=== PATIENT | female | born 1950 | race Caucasian/White ===

== ENCOUNTER → 2016-08-31 | Outpatient (CLI) | payer OTHER, MEDICARE ==
[~2016-08-31] MED LIST: ACET-1138 PO; AMOX250C3 PO; ASPEC325 PO; BECL0.072 INH; CHOL2000 PO; CYAN1CAP3 PO; DSY/50 PO; ESOM40GR PO; FLUT0.15 INH; FRRG PO; HYDR50TA3 PO; KETO10TA PO; LORA10CA2 PO; MCRK20 PO; MECL1TAB40 PO; MELO15TA4 PO; MELO7.5T5 PO; MOME50SP5; OMEG10002 PO; TRAM-10 PO; ULT50X PO; VLM2 PO
--- NOTE | 2016-08-31 15:56 | DIAGNOSTIC IMAGING REPORT ---
CHEST 2 VIEWS ROUTINE CLINICAL HISTORY: Cough COMPARISON STUDY: 06/05/2015 FINDINGS: The cardiac and mediastinal contours remain stable. Slight prominence the right mid mediastinum is less pronounced than on the prior examination. There is no focal pulmonary consolidation. There is no failure. There are no pleural effusions. There is a minor midthoracic compression deformity unchanged from the prior study.[ IMPRESSION: No active disease in the chest. Electronically signed by: Justice Adams M.D. 08/31/2016 3:54 PM Dictated Date/Time: 08/31/2016 3:53 PM
== END | disposition home or self-care (01) ==
LOC: C.RAD1850 15:39
PROVIDERS: ATTEND Internal Medicine Pulmonary Disease
DX: R05 Cough (principal)

== ENCOUNTER → 2016-09-06 | Outpatient (CLI) | payer OTHER, MEDICARE ==
--- NOTE | 2016-09-06 07:58 | DIAGNOSTIC IMAGING REPORT ---
MRI OF THE RIGHT SHOULDER CLINICAL HISTORY: Right shoulder pain. COMPARISON STUDY: No priors. TECHNIQUE: MRI of the right shoulder was performed utilizing various T1 and T2 weighted sequences in the axial, sagittal, coronal planes. IV contrast was not administered for this examination. Note that interpretation is suboptimal without plain film correlate. FINDINGS: Rotator cuff: There is tendinopathy of the supraspinatous tendon, with a large full-thickness tear at the leading edge. The tear measures at least 8 mm in length and 9 mm in AP diameter. There is no significant musculotendinous retraction. There is tendinopathy with extensive high-grade partial-thickness tearing of the infraspinatus tendon. No full-thickness infraspinatus tendon tear is seen. The teres minor and subscapularis tendons are intact. There is subacromial and subdeltoid bursal fluid. Mild productive change is seen involving the acromioclavicular joint. Biceps tendon: There is mild tendinopathy of the long head of the biceps tendon. The fibers are intact and the tendon is located within the bicipital groove. The anchor is maintained. Labrum: Fraying and mild degenerative tearing is seen in the superior aspect of the labrum. Shoulder joint: There is no joint effusion. The articular cartilage over the glenoid appears well maintained. There is mild degenerative thinning of the articular cartilage of the humeral head. Mild arthritic change is present the greater tuberosity of the humeral head. Musculature and soft tissues: There is mild symmetric atrophy of the shoulder musculature. No intramuscular edema is seen. No atrophy is seen. IMPRESSION: 1. Tendinopathy with a large full-thickness tear of the supraspinatous tendon as above. No significant musculotendinous retraction is identified. 2. Extensive high-grade partial-thickness tearing is seen involving the infraspinatus tendon. No full-thickness tear is identified. 3. There is tendinopathy of the long head of the biceps tendon. 4. There is degenerative fraying/tearing of the superior labrum. Electronically signed by: Subhash Hutchinson M.D. 09/06/2016 7:57 AM Dictated Date/Time: 09/06/2016 7:52 AM
== END | disposition home or self-care (01) ==
LOC: C.MRIBC 06:36
PROVIDERS: ATTEND Orthopaedic Surgery
DX: M75.101 Unspecified rotator cuff tear or rupture of right shoulder, not specified as traumatic (principal); M75.21 Bicipital tendinitis, right shoulder

== ENCOUNTER → 2016-10-22 | Outpatient (CLI) | payer OTHER, MEDICARE ==
--- NOTE | 2016-10-22 11:25 | DIAGNOSTIC IMAGING REPORT ---
PARANASAL SINUSES 4 VIEWS CLINICAL HISTORY: Allergic rhinitis. FINDINGS: 4 views of the paranasal sinuses are obtained. No prior studies are available for comparison at the time of dictation. The skeletal structures appear well mineralized. There is no radiographic evidence of paranasal sinus disease. The mastoid air cells appear well-pneumatized. The bony orbits are intact as visualized. The imaged calvarium appears preserved. IMPRESSION: There is no radiographic evidence of paranasal sinus disease. Electronically signed by: Subhash Hutchinsno M.D. 10/22/2016 11:23 AM Dictated Date/Time: 10/22/2016 11:23 AM
== END | disposition home or self-care (01) ==
LOC: C.RAD1850 11:08
PROVIDERS: ATTEND Internal Medicine Pulmonary Disease
DX: J30.1 Allergic rhinitis due to pollen (principal); J30.81 Allergic rhinitis due to animal (cat) (dog) hair and dander; J30.89 Other allergic rhinitis; R05 Cough

== ENCOUNTER → 2016-10-23 | Outpatient (CLI) | payer OTHER, MEDICARE | END | disposition home or self-care (01) | LOC: C.LABBC 09:45 | PROVIDERS: ATTEND Internal Medicine Pulmonary Disease | DX: R05 Cough (principal) ==

== ENCOUNTER → 2016-10-29 | Outpatient (CLI) | payer OTHER, MEDICARE ==
--- NOTE | 2016-10-29 15:14 | DIAGNOSTIC IMAGING REPORT ---
CT SCAN OF THE PARANASAL SINUSES CLINICAL HISTORY: Nasal turbinate hypertrophy. COMPARISON STUDY: Radiographs of the paranasal sinuses dated 10/22/2016. TECHNIQUE: High-resolution CT scan of the paranasal sinuses is performed. Images are reviewed in the axial, sagittal, and coronal planes. IV contrast was not administered for this examination. The examination is performed using the fusion protocol. CT DOSE: 810.40 mGycm FINDINGS: Maxillary antra: There is mild nodular mucosal thickening present within both maxillary antra. Anterior ethmoid sinuses: There are opacified bilateral ethmoid air cells. Mild mucosal thickening is seen within the anterior ethmoid sinuses. Sphenoid sinuses: Mild nodular mucosal thickening is identified, left greater than right. Frothy secretions are noted on the left. Frontal sinuses: Clear. Ostiomeatal complexes: Narrowing on the right secondary to mucosal thickening. Nearly occluded on the left. Frontoethmoidal and sphenoethmoidal recesses: Patent bilaterally. Carotid arteries: The carotid arteries are covered and without septal attachments. Ethmoid roofs: The ethmoid roofs are symmetric. Nasal turbinates: There is deion bullosa of the inferior nasal turbinates. Nasal septum: There is mild rightward deviation of the bony nasal septum. Optic nerves: Covered. Orbits: The bony orbits are intact. Orbital contents are normal in appearance. Calvarium: The imaged calvarium is normal in appearance Mastoid air cells: There are large right and small left mastoid effusions. Brain parenchyma: Partially visualized brain parenchyma is within normal limits. IMPRESSION: 1. Paranasal sinus disease as above. 2. Mastoid effusions, right larger than left. 3. There is deion bullosa of the inferior nasal turbinates. Electronically signed by: Subhash Hutchinson M.D. 10/29/2016 3:12 PM Dictated Date/Time: 10/29/2016 3:08 PM
== END | disposition home or self-care (01) ==
LOC: C.CTS 13:48
DX: J34.3 Hypertrophy of nasal turbinates (principal); J32.8 Other chronic sinusitis; H74.93 Unspecified disorder of middle ear and mastoid, bilateral

== ENCOUNTER → 2016-11-19 | Day surgery (SDC) | payer OTHER, MEDICARE ==
[2016-11-11 10:47] VITALS: Ht 167.6 cm; Wt 118.2 kg
--- NOTE | 2016-11-12 10:18 | PAT Medication Instructions ---
Service Date Nov 12, 2016. Current Home Medication List Amoxicillin (Amoxil), 4 CAP PO UD Beclomethasone Dipropionate (Qvar), 2 PUFFS INH BID Cholecalciferol (Vitamin D3), 1 CAP PO QAM Cyanocobalamin (B-12), 1 CAP PO QAM Diazepam (Diazepam), 2 TABS PO TID PRN for MOTION SICKNESS Esomeprazole Magnesium (Nexium), 40 MG PO QAM Fluticasone Propionate (Nasal) (Flonase Allergy Relief), 1 SPRAY INH DAILY PRN for PRN Hydrochlorothiazide (Hctz), 1 TAB PO QAM Loratadine (Claritin), 1 CAP PO DAILY PRN for PRN Meclizine HCl (Meclizine HCl), 1 TAB PO UD PRN for VERTIGO Meloxicam (Mobic), 15 MG PO DAILY PRN for Pain [place]-3 Fatty Acids (Fish Oil), 1 CAP PO BID Potassium Chloride (Klor-Con M20), 1 TAB PO BID Trazodone HCl (Trazodone HCl), 1 TAB PO HS Medication Instructions For Your Scheduled Surgery Amoxicillin (Amoxil), 4 CAP PO UD (takes only prior to dental procedures) Meclizine HCl (Meclizine HCl), 1 TAB PO UD PRN for VERTIGO (not taking currently ) Meloxicam (Mobic), 15 MG PO DAILY PRN for Pain (patient stopped 11/06/16) [place]-3 Fatty Acids (Fish Oil), 1 CAP PO BID (patient stopped 11/06/16) - Hold the following medications the morning of surgery: Potassium Chloride (Klor-Con M20), 1 TAB PO BID Loratadine (Claritin), 1 CAP PO DAILY PRN for PRN Hydrochlorothiazide (Hctz), 1 TAB PO QAM Cholecalciferol (Vitamin D3), 1 CAP PO QAM Cyanocobalamin (B-12), 1 CAP PO QAM - Take the following medications the morning of surgery with a sip of water: Fluticasone Propionate (Nasal) (Flonase Allergy Relief), 1 SPRAY INH DAILY PRN for PRN Esomeprazole Magnesium (Nexium), 40 MG PO QAM Diazepam (Diazepam), 2 TABS PO TID PRN for MOTION SICKNESS (if needed) Beclomethasone Dipropionate (Qvar), 2 PUFFS INH BID Albuterol Inhaler (bring with you to hospital on day of surgery) - Take the following medications as scheduled the night before surgery: Trazodone HCl (Trazodone HCl), 1 TAB PO HS Potassium Chloride (Klor-Con M20), 1 TAB PO BID Diazepam (Diazepam), 2 TABS PO TID PRN for MOTION SICKNESS Beclomethasone Dipropionate (Qvar), 2 PUFFS INH BID Albuterol Inhaler If you have any questions please call us at [phone] or [phone] ( Jessica) or [phone]
[2016-11-12 10:48] LABS: BASO % 0.6 %; BASO ABS # 0.04 K/uL (0-0.2); COMPLETE YES; EOS % 4.2 %; HEMATOCRIT 40.2 % (37-47); IG% 0.3 %; LYMPH % 28.9 %; LYMPH ABS # 1.98 K/uL (1.2-3.4); MEAN CELL VOLUME 81.7 fL (80-100); MEAN CORPUSCULAR HEMOGLOBIN 27.8 pg (25-34); MEAN CORPUSCULAR HGB CONC 34.1 g/dl (32-36); MONO % 9.4 %; NEUT % 56.6 %; PLATELET COUNT 273 K/uL (130-400); RED BLOOD COUNT 4.92 M/uL (4.2-5.4); WHITE BLOOD COUNT 6.84 K/uL (4.8-10.8)
[2016-11-12 13:15] LABS: BUN/CREATININE RATIO 33.4 (10-20); CALCIUM 9.6 mg/dl (8.5-10.1); CREATININE 0.7 mg/dl (0.60-1.20)
[~2016-11-19] VITALS: Ht 167.6 cm; Wt 118.2 kg
[~2016-11-19] MED LIST changes: -ACET-1138 PO; +ACETAMINOPHEN 1000 MG/100 ML IV IV ONE; -ASPEC325 PO; +ATROPINE SULFATE 0.1 MG/ML 5ML SYR IV PRN; +CEFAZOLIN 2000 MG/60 ML D5W IV SCH; +DEXAMETHASONE SOD INJ 4 MG/ML VIAL ONE; +EpHEDrine SULFATE INJ 50 MG/ML AMP IV PRN; +EpINEphrine INJ 1MG/ML AMP 1 MG/ML AMP ONE; +FENTANYL CITRATE INJ 50 MCG/1 ML 2 ML VIAL IV PRN; +FENTANYL CITRATE INJ 50 MCG/1 ML 2 ML VIAL ONE; -FRRG PO; +GLYCOPYRROLATE INJ 0.2 MG/ML VIAL ONE; +HYDROCODONE/ACETAMOPHEN 5/325MG TAB PO PRN; +KETAMINE HCL INJ 50 MG/ML 10 ML VIAL ONE; +LACTATED RINGER'S 1000ML 1,000 ML IV SCH; +LIDOCAINE 4% MPF SOAK 5 ML = 1 DOSE TOP ONE; +LIDOCAINE HCL 2% 2 ML VIAL (20MG/ML) ONE; +LIDOCAINE/EPINEPHRINE 1% INJ 50 ML VIAL ONE; -MELO7.5T5 PO; +MIDAZOLAM HCL 1 MG/ML 2ML VIAL ONE; -MOME50SP5; +NEOSTIGMINE METHYLSULFATE 5 MG/5 ML SYR ONE; +ONDANSETRON INJ 2 MG/ML 2 ML VIAL IV PRN; +ONDANSETRON INJ 2 MG/ML 2 ML VIAL ONE; +OXYMETAZOLINE HCL 0.05% NA SPR 15 ML BTL NAE SCH; +OXYMETAZOLINE HCL 0.05% NA SPR 15 ML BTL PRN; +PROPOFOL IV EMULSION 10 MG/ML 20 ML VIAL IV ONE; +SCOPOLAMINE 1.5 MG TDSY TD ONE; -ULT50X PO
--- NOTE | 2016-11-19 07:46 | History & Physical Bridge - [place] ---
H&P Re-Evaluation Bridge Note: I have examined the patient, reviewed the History & Physical and in the interval since the performance of the History & Physical I have noted the following changes of clinical significance: No changes noted
--- NOTE | 2016-11-19 09:27 | [facility] Operative Report ---
Operative Report Operative Date Nov 19, 2016. Pre-Operative Diagnosis Chronic Sinusitis, Nasal Septal Deviation, Hypertrophy Bilateral Inferior Nasal Turbinates Post-Operative Diagnosis Same Procedure(s) Performed Image-Guided Revision Bilateral Endoscopic Sinus Surgery, Revision Septoplasty, Bilateral Inferior Turbinate Outfracture And Turbinoplasty, And Right Nasal Lysis Of Adhesions Surgeon Dr. 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 PUS IN L MAXILLARY SINUS 2. SYNECHIA BETWEEN RIGHT SEPTUM AND RIGHT INFERIOR TURBINATE AND LATERAL NASAL WALL 3. MUCOSAL THICKENING BILATERAL MAXILLARY, BILATERAL ETHMOID, AND LEFT SPHENOID SINUSES Specimens 1. Left Maxillary Contents for Gram Stain and Culture I attest to the content of the Intraoperative Record and any orders documented therein. Any exceptions are noted below.
--- NOTE | 2016-11-19 09:30 | Discharge Instructions ---
Discharge Instructions Date of Service Nov 19, 2016. Admission Reason for Admission: Chronic Sinusitis, Nasal Septal Deviation, Hypertr Discharge Discharge Diagnosis / Problem: SAME Discharge Goals Goal(s): Therapeutic intervention Activity Recommendations Activity Limitations: as noted below 1. NO NOSE BLOWING FOR 2WEEKS 2. LIGHT ACTIVITY FOR 2WEEKS 3. NO DRIVING WHILE ON NARCOTICS . Current Hospital Diet Patient's current hospital diet: Discharge Diet Recommended Diet: Regular Diet Procedures Procedures Performed: Image-Guided Revision Bilateral Endoscopic Sinus Surgery, Revision Septoplasty, Bilateral Inferior Turbinate Outfracture And Turbinoplasty, And Right Nasal Lysis Of Adhesions Pending Studies Studies pending at discharge: no Medical Emergencies . Who to Call and When: Medical Emergencies: If at any time you feel your situation is an emergency, please call 911 immediately. . Non-Emergent Contact Non-Emergency issues call your: Surgeon . . "Provider Documentation" section prepared by Zak Knowles. VTE Core Measure Inpt VTE Proph given/why not?: SCD's
[2016-11-19 10:17] VITALS: TEMP 36.1
--- NOTE | 2016-11-19 10:25 | Anesthesia Progress Nt - [facility] ---
Anesthesia Post Op Note Date & Time Nov 19, 2016 at 10:25 Vital Signs Pain Intensity: 3 Vital Signs Past 12 Hours Date Time Temp Pulse Resp B/P Pulse Ox O2 Delivery O2 Flow Rate FiO2 11/19/16 10:17 36.1 68 16 148/80 97 Room Air 11/19/16 09:57 66 20 96 11/19/16 09:57 66 20 11/19/16 09:55 140/78 11/19/16 09:54 37.0 96 Room Air 11/19/16 09:52 78 18 93 11/19/16 09:52 75 18 11/19/16 09:51 65 17 98 11/19/16 09:51 65 17 11/19/16 09:50 134/79 11/19/16 09:46 67 14 97 11/19/16 09:46 67 14 11/19/16 09:45 132/74 11/19/16 09:43 65 13 11/19/16 09:43 65 13 99 11/19/16 09:40 136/75 11/19/16 09:38 66 12 100 11/19/16 09:38 66 12 11/19/16 09:35 143/82 11/19/16 09:33 77 21 97 11/19/16 09:33 77 21 11/19/16 09:30 144/91 11/19/16 09:28 100 24 11/19/16 09:28 95 24 96 11/19/16 09:26 140/76 11/19/16 09:23 82 22 100 11/19/16 09:23 82 22 11/19/16 09:20 143/76 11/19/16 09:18 91 11/19/16 09:18 36.5 85 18 145/94 98 Mask 7 11/19/16 09:18 91 145/94 95 11/19/16 07:26 36.6 78 16 139/79 97 Room Air Notes Mental Status: alert / awake / arousable, participated in evaluation Pt Amnestic to Procedure: Yes Nausea / Vomiting: adequately controlled Pain: adequately controlled Airway Patency, RR, SpO2: stable & adequate BP & HR: stable & adequate Hydration State: stable & adequate Anesthetic Complications: no major complications apparent
[2016-11-19 10:43] VITALS: BP 118/79; PULSE 68; O2SAT 97
--- NOTE | 2016-11-19 12:41 | OPERATIVE REPORT ---
DATE OF OPERATION: 11/19/2016 PREOPERATIVE DIAGNOSES: 1. Chronic rhinosinusitis. 2. Right septal deviation. 3. Bilateral inferior turbinate hypertrophy. 4. Right nasal synechiae. POSTOPERATIVE DIAGNOSES: 1. Chronic rhinosinusitis. 2. Right septal deviation. 3. Bilateral inferior turbinate hypertrophy. 4. Right nasal synechiae. PROCEDURES: e-[employer] fusion image guided revision, bilateral endoscopic sinus surgery consisting of: 1. Endoscopic right nasal lysis of adhesions. 2. Revision bilateral maxillary antrostomies. 3. Revision bilateral complete ethmoidectomies. 4. Revision left sphenoidotomy. 5. Revision septoplasty. 6. Revision bilateral inferior turbinate outfracture turbinoplasty. SURGEON: Dr. Knowles. ANESTHESIA: General endotracheal. ESTIMATED BLOOD LOSS: 25 mL. FINDINGS: 1. Adhesion between the right side of the nasal septum and the inferior turbinate and lateral nasal wall causing right-sided nasal airway obstruction. 2. Purulence within the left maxillary sinus. 3. Polypoid mucosal thickening involving the bilateral maxillary, ethmoid, and left sphenoid sinuses. SURGEON: Dr. Zak Knowles. SPECIMENS: Left maxillary sinus contents for Gram stain, culture, and sensitivity. COMPLICATIONS: None. INDICATIONS: The patient is a pleasant 66-year-old female who underwent bilateral endoscopic sinus surgery, septoplasty, and inferior turbinate reduction by another optical design engineer in the past who has had recurrent acute and chronic rhinosinusitis refractory to maximal medical therapy including systemic antibiotics and steroids. A posttreatment fusion CT scan showed abnormalities involving the left ostiomeatal complex, bilateral maxillary sinuses, bilateral ethmoid sinuses, and left sphenoid sinus along with right-sided septal deviation and an adhesion between the right inferior turbinate and lateral nasal jimenez connected to the septum. In addition, she had continued bilateral inferior turbinate hypertrophy. She presents for the above-mentioned procedures on an outpatient elective basis. DETAILS OF PROCEDURE: After informed consent had been obtained from the patient, the patient was wheeled to the operating room and placed on the operating table in the supine position. Monitors were placed. After induction of general endotracheal anesthesia, the patient's abdomen was prepped in the usual fashion for endoscopic sinus surgery. The [employer] fusion headset was applied to the forehead and was registered, calibrated and verified and used for the sphenoid portion of the case primarily. Lidocaine and epinephrine pledgets were placed in the bilateral middle meati. The left-sided pledgets were removed. A freer elevator was used to medialize the left middle turbinate. The left middle turbinate and residual uncinate process and lateral nasal wall were injected with 1% lidocaine with 1:100,000 epinephrine. Lidocaine and epinephrine pledget was then placed into the left middle meatus. On the right hand side, there was an adhesion between the septum and the right inferior turbinate and lateral nasal wall which caused complete obstruction of the right nasal airway in the mid septal region. The adhesion was injected with 1% lidocaine with 1:100,000 epinephrine. After allowing adequate time for anesthesia, the adhesion was lysed using a freer elevator and then the freer elevator was used to medialize the right middle turbinate. Once again, the middle turbinate and residual uncinate process and lateral nasal wall were injected with 1% lidocaine with 1:100,000 epinephrine and a pledget was placed into the right middle meatus. The left-sided pledget was then removed. There was a large amount of uncinate process that was residual and this was removed using a Milliken elevator, straight Duke-Cut forceps and powered instrumentation. The left maxillary sinus ostia was completely blocked with scar tissue and polypoid tissue and this was removed using powered instrumentation and backbiting forceps. There was purulence within the left maxillary sinus which was sampled using a Lukens tube and sent off for Gram stain, culture, and sensitivities. The natural ostia of the left maxillary sinus was enlarged anteriorly and inferiorly. It has already been enlarged posteriorly such that further posterior dissection could not be performed. A revision complete ethmoidectomy was then performed using powered instrumentation. Using a transethmoid approach the left sphenoid sinus was also entered and the sphenoid sinus ostia was enlarged medially and inferiorly using powered instrumentation. The right side was then addressed in a similar fashion except that the sphenoid sinus was left undisturbed as this was normal on the CT scan. Also, there was less residual uncinate process on the right hand side. There was no purulence within the right maxillary sinus. Of note, there was polypoid mucosal thickening involving the bilateral ethmoid sinuses. The nasal septum was then injected with 1% lidocaine with 1:100,000 epinephrine. Lidocaine and epinephrine pledgets were placed in the bilateral nasal cavities and pressure applied. After allowing adequate time for vasoconstriction, the pledgets were removed and a #15 scalpel was used to make a left hemitransfixion incision through which the left-sided mucoperichondrial mucoperiosteal flap was elevated. Of note, there was a large amount of quadrangular cartilage already removed from her previous septoplasty. The major obstruction was bony septal spur which was impinging on the airway posteriorly on the right hand side and likely led to her right nasal adhesion. This bony septal spur was removed using an osteotome, mallet, and Miguel forceps. After removal of the septal spur, the septum was found to be midline. The left hemitransfixion incision was closed with several simple interrupted 4-0 chromic sutures. A 4-0 plain gut suture on a Darian needle was then used to perform a quilting stitch of the mucoperichondrial mucoperiosteal flaps bilaterally to help prevent septal hematoma. A Villanueva elevator was then used to infracture and subsequently outfracture the inferior turbinates bilaterally. The inferior turbinates were injected with 1% lidocaine with 1:100,000 epinephrine. A 2.0 mm turbinate blade using powered instrumentation was then used to perform bilateral inferior turbinoplasties in a submucosal fashion. The sinonasal cavities were then suctioned. Merogel was then placed in the bilateral ethmoid sinuses/middle meati. An orogastric tube was placed and the stomach was suctioned free of air and stomach contents. This marked the end of the case. The patient tolerated the procedure well and there were no apparent complications. All the instrumentation was removed from the patient. The patient was extubated and transferred to recovery room in stable condition. I attest to the content of the Intraoperative Record and any orders documented therein. Any exceptio ns are noted below.
== END | disposition home or self-care (01) ==
LOC: X.SURG 07:04
DX: J34.3 Hypertrophy of nasal turbinates (principal); J32.9 Chronic sinusitis, unspecified; J34.2 Deviated nasal septum; J34.89 Other specified disorders of nose and nasal sinuses; K21.9 Gastro-esophageal reflux disease without esophagitis; H69.80 Other specified disorders of Eustachian tube, unspecified ear; E78.5 Hyperlipidemia, unspecified; I10 Essential (primary) hypertension; M17.11 Unilateral primary osteoarthritis, right knee; G25.81 Restless legs syndrome; N39.3 Stress incontinence (female) (male); E53.8 Deficiency of other specified B group vitamins

== ENCOUNTER → 2017-02-04 | Day surgery (SDC) | payer OTHER, MEDICARE ==
[2017-01-12 09:54] VITALS: BMI 43.0
--- NOTE | 2017-01-12 10:43 | PAT Medication Instructions ---
Service Date Jan 12, 2017. Current Home Medication List Amoxicillin (Amoxil), 4 CAP PO UD Beclomethasone Dipropionate (Qvar), 2 PUFFS INH BID PRN for ASTHMA Cholecalciferol (Vitamin D3), 1 CAP PO QAM Cyanocobalamin (B-12), 1 CAP PO QAM Diazepam (Diazepam), 2 TABS PO TID PRN for MOTION SICKNESS Esomeprazole Magnesium (Nexium), 40 MG PO QAM Hydrochlorothiazide (Hctz), 1 TAB PO QAM Loratadine (Claritin), 1 CAP PO DAILY PRN for PRN Meclizine HCl (Meclizine HCl), 1 TAB PO UD PRN for VERTIGO [place]-3 Fatty Acids (Fish Oil), 1 CAP PO BID Potassium Chloride (Klor-Con M20), 1 TAB PO BID Trazodone HCl (Trazodone HCl), 1 TAB PO HS Medication Instructions For Your Scheduled Surgery Meclizine HCl (Meclizine HCl), 1 TAB PO UD PRN for VERTIGO (not taking currently ) - Hold the following medications 2 weeks prior to surgery: [place]-3 Fatty Acids (Fish Oil), 1 CAP PO BID - Hold the following medications the morning of surgery: Amoxicillin (Amoxil), 4 CAP PO UD (will get IV antibiotic AM of surgery) Potassium Chloride (Klor-Con M20), 1 TAB PO BID Loratadine (Claritin), 1 CAP PO DAILY PRN for PRN Hydrochlorothiazide (Hctz), 1 TAB PO QAM Cholecalciferol (Vitamin D3), 1 CAP PO QAM Cyanocobalamin (B-12), 1 CAP PO QAM - Take the following medications the morning of surgery with a sip of water: Diazepam (Diazepam), 2 TABS PO TID PRN for MOTION SICKNESS (if needed) Esomeprazole Magnesium (Nexium), 40 MG PO QAM Beclomethasone Dipropionate (Qvar), 2 PUFFS INH BID PRN for ASTHMA - Take the following medications as scheduled the night before surgery: Trazodone HCl (Trazodone HCl), 1 TAB PO HS Potassium Chloride (Klor-Con M20), 1 TAB PO BID Beclomethasone Dipropionate (Qvar), 2 PUFFS INH BID PRN for ASTHMA If you have any questions please call us at [phone] or [phone] ( Jessica) or [phone]
[2017-01-12 10:56] LABS: BASO % 0.5 %; BASO ABS # 0.04 K/uL (0-0.2); COMPLETE YES; EOS % 4.5 %; HEMATOCRIT 41.6 % (37-47); IG% 0.4 %; LYMPH % 27.2 %; LYMPH ABS # 2.19 K/uL (1.2-3.4); MEAN CELL VOLUME 83.4 fL (80-100); MEAN CORPUSCULAR HEMOGLOBIN 27.5 pg (25-34); MEAN CORPUSCULAR HGB CONC 32.9 g/dl (32-36); MEAN PLATELET VOLUME 9.8 fL (7.4-10.4); NEUT % 56.4 %; PLATELET COUNT 217 K/uL (130-400); RED BLOOD COUNT 4.99 M/uL (4.2-5.4); WHITE BLOOD COUNT 8.06 K/uL (4.8-10.8)
[2017-01-12 11:05] LABS: PARTIAL THROMBOPLASTIN RATIO 1.2; PROTHROMBIN TIME (PATIENT) 10.5 SECONDS (9.0-12.0)
[2017-01-12 13:32] LABS: BUN/CREATININE RATIO 28.3 (10-20); CREATININE 0.8 mg/dl (0.60-1.20)
[2017-01-12 13:41] LABS: CALCIUM 9.5 mg/dl (8.5-10.1)
[~2017-02-04] VITALS: Ht 167.6 cm; Wt 120.2 kg
[~2017-02-04] MED LIST changes: +ACETAMINOPHEN 500 MG TAB PO SCH; +BUPIVACAINE/EPINEPHRINE 0.25% 1:200,000 30 ML VIAL ONE; -CEFAZOLIN 2000 MG/60 ML D5W IV SCH; +CEFAZOLIN 3000 MG/65 ML D5W 65 ML IV SCH; +CHECK SCOPOLAMINE PATCH PLACEMENT SCH; +DiphenhydrAMINE HCL 50 MG/ML VIAL ONE; +EpHEDrine SULFATE 50MG/5ML SYR ONE; +EpINEphrine HCL INJ 1 MG/ML 5ML SYRINGE ONE; -EpINEphrine INJ 1MG/ML AMP 1 MG/ML AMP ONE; +FAMOTIDINE 20 MG TAB PO SCH; -FENTANYL CITRATE INJ 50 MCG/1 ML 2 ML VIAL IV PRN; -FLUT0.15 INH; +GABAPENTIN 300 MG CAP PO SCH; -HYDROCODONE/ACETAMOPHEN 5/325MG TAB PO PRN; +HYDROmorphone INJ 2 MG/ML SYR/VIAL ONE; -KETAMINE HCL INJ 50 MG/ML 10 ML VIAL ONE; +LACTATED RINGER'S 1000ML IV SCH; -LIDOCAINE 4% MPF SOAK 5 ML = 1 DOSE TOP ONE; -LIDOCAINE/EPINEPHRINE 1% INJ 50 ML VIAL ONE; -MELO15TA4 PO; -OXYMETAZOLINE HCL 0.05% NA SPR 15 ML BTL NAE SCH; -OXYMETAZOLINE HCL 0.05% NA SPR 15 ML BTL PRN; +PHENYLEPHRINE 100MCG/ML 5ML SYR ONE; +RANITIDINE HCL 25 MG/ML INJ ONE; +ROCURONIUM BROMIDE 10 MG/ML 5 ML VIAL ONE; +ROPIVACAINE 0.5% 5 MG/ML 30 ML VIAL ONE; -SCOPOLAMINE 1.5 MG TDSY TD ONE; +SCOPOLAMINE 1.5 MG TDSY TD SCH; +SODIUM CHLORIDE 0.9% 1000ML 1,000 ML IV SCH; +TRAMADOL HCL 50 MG TAB PO PRN
--- NOTE | 2017-02-04 06:41 | History and Physical ---
History & Physical Date Feb 04, 2017. Chief Complaint R shoulder rotator cuff tear History of Present Illness The patient is a 66 year old female with complaints of Past Medical/Surgical History Medical Problems: (1) Right Knee DJD Additional History Hepatic Disease: No Endocrine Disorder: No Kidney Disease: No Hypertension: No Heart Disease: No Bleeding Tendencies: No Infectious Diseases: No Allergies Coded Allergies: Latex2 -Systemic Allergic Response (Verified Allergy, Severe, FACIAL EDEMA AND ITCHING/RASH, 01/12/17) Aluminum (Verified Allergy, Unknown, fatigue,KELLOGG,chills,'achiness', 01/12/17) Celecoxib (Verified Allergy, Unknown, "SEVERE GENERAL BODY EDEMA", 01/12/17) Diclofenac (Verified Allergy, Unknown, GI upset/diarrhea, 01/12/17) Diphtheria Toxoid (Verified Allergy, Unknown, fatigue,KELLOGG,chills,'achiness' , 01/12/17) POLLEN (Verified Allergy, Unknown, HAY FEVER, 01/12/17) Pneumococcal Polysaccharides Conjug (Verified Allergy, Unknown, fatigue,KELLOGG ,chills,'achiness', 01/12/17) Sorbitan (Verified Allergy, Unknown, fatigue,KELLOGG,chills,'achiness', 01/12/17) Fentanyl (Verified Adverse Reaction, Unknown, severe nausea and dizziness , 01/12/17) Uncoded Allergies: NARCOTIC PAIN MEDICINE (Adverse Reaction, Severe, SEVERE N/V AND DIZZINESS , 03/27/15) Home Medications Scheduled Amoxicillin (Amoxil), 4 CAP PO UD Cholecalciferol (Vitamin D3), 1 CAP PO QAM Cyanocobalamin (B-12), 1 CAP PO QAM Esomeprazole Magnesium (Nexium), 40 MG PO QAM Hydrochlorothiazide (Hctz), 1 TAB PO QAM [place]-3 Fatty Acids (Fish Oil), 1 CAP PO BID Potassium Chloride (Klor-Con M20), 1 TAB PO BID Trazodone HCl (Trazodone HCl), 1 TAB PO HS Scheduled PRN Beclomethasone Dipropionate (Qvar), 2 PUFFS INH BID PRN for ASTHMA Diazepam (Diazepam), 2 TABS PO TID PRN for MOTION SICKNESS Loratadine (Claritin), 1 CAP PO DAILY PRN for PRN Meclizine HCl (Meclizine HCl), 1 TAB PO UD PRN for VERTIGO Physical Examination Skin: warm/dry, no rash Eyes: normal inspection, EOMI, sclerae normal ENT: normal ENT inspection, pharynx normal Head: normocephalic, atraumatic Neck: supple, no adenopathy, trachea midline Respiratory/Chest: lungs clear, normal breath sounds, no respiratory distress Cardiovascular: regular rate, rhythm, no edema, no murmur Abdomen / GI: normal bowel sounds, non tender Back: normal inspection Extremities: normal inspection, normal range of motion Neurologic/Psych: no motor/sensory deficits, alert, normal reflexes, oriented x 3 Diagnosis Rotator Cuff Tear R shoulder Plan of Treatment R rotator cuff repair
[2017-02-04 06:59] VITALS: BP 155/88; PULSE 74; TEMP 36.5; O2SAT 95; Ht 167.6 cm; Wt 120.2 kg
--- NOTE | 2017-02-04 11:01 | Discharge Instructions ---
Discharge Instructions Date of Service Feb 04, 2017. Admission Reason for Admission: Full Thickness Right Rotator Cuff Tear Discharge Discharge Diagnosis / Problem: SAME ABOVE Discharge Goals Goal(s): Decrease discomfort, Improve function Activity Recommendations Activity Limitations: as noted below Lifting Limitations: until after follow-up appointment Exercise/Sports Limitations: until after follow-up appointment Shower/Bathe: tomorrow . Instructions / Follow-Up Instructions / Follow-Up MEDICATIONS: * Resume previous medications unless instructed otherwise by your surgeon. * Always take pain medication on a full stomach or with food to avoid upset stomach. * Do not drink alcohol or drive while taking narcotics. * Ibuprofen or Tylenol may be taken if narcotic not needed. SPECIAL CARE INSTRUCTIONS: __ None __ Keep extremity elevated and iced x 48 hours; apply ice 20-30 minutes 8-10 times/day. May remove at night. __ Sling __24 hrs/day __ Remove at night _X_ Shoulder Immobilizer (MAY REMOVE AFTER 48 HOURS ONLY TO SHOWER AND FOR THERAPY) _X_ 24 hrs/day __ Remove at night _X_ Dressing __ Maintain until seen in office, may shower with plastic over site _X_ Remove dressings in 24-48 hours and then may shower _X_ Cover incisions with band-aids after showering __ Do not remove steri-strips Call physician if chills or temperature rises above 102 degrees or pain unrelieved by prescribed pain medications at . . Current Hospital Diet Patient's current hospital diet: Discharge Diet Recommended Diet: Regular Diet Fluid Restriction: None Procedures Procedures Performed: Right shoulder arthroscopy medium rotator cuff repair Pending Studies Studies pending at discharge: no Work Instructions Return To Work: after follow-up Lifting Limitations: NO LIFTING WITH RIGHT ARM Medical Emergencies . Who to Call and When: Medical Emergencies: If at any time you feel your situation is an emergency, please call 911 immediately. . Non-Emergent Contact Non-Emergency issues call your: Primary Care Provider Call Non-Emergent contact if: you have a fever, temperature is above 101.5 . "Provider Documentation" section prepared by Neftaly Sahu. . VTE Core Measure Inpt VTE Proph given/why not?: Treatment not indicated
--- NOTE | 2017-02-04 11:54 | Anesthesiology Progress Note ---
Anesthesia Post Op Note Date & Time Feb 04, 2017 at 11:54 Vital Signs Pain Intensity: 0 Vital Signs Past 12 Hours Date Time Temp Pulse Resp B/P (MAP) Pulse Ox O2 Delivery O2 Flow Rate FiO2 02/04/17 11:45 66 16 164/78 94 Nasal Cannula 2 02/04/17 11:35 66 16 150/75 90 Room Air 02/04/17 11:25 66 16 162/83 90 Room Air 02/04/17 11:15 69 16 150/79 97 Oxymask 10 02/04/17 11:05 76 16 154/98 96 Oxymask 10 02/04/17 10:59 36 76 16 155/79 96 Oxymask 10 02/04/17 09:10 67 14 152/80 (104) 98 Diffusion Mask 10 02/04/17 09:00 69 12 141/88 (105) 98 Diffusion Mask 10 02/04/17 08:50 68 12 151/81 (104) 96 Diffusion Mask 10 02/04/17 06:59 36.5 74 20 155/88 (110) 95 Room Air Notes Mental Status: alert / awake / arousable, participated in evaluation Pt Amnestic to Procedure: Yes Nausea / Vomiting: adequately controlled Pain: adequately controlled Airway Patency, RR, SpO2: stable & adequate BP & HR: stable & adequate Hydration State: stable & adequate Anesthetic Complications: no major complications apparent No complaints of pain or nausea. Block working very well. Mild shorty's noted. VSS. Appropriate for transfer out of PACU.
[2017-02-04 12:03] VITALS: BP 155/78; PULSE 95; TEMP 36.5; O2SAT 97
[2017-02-04 12:30] VITALS: BP 164/86; PULSE 96; TEMP 36.7; O2SAT 95
--- NOTE | 2017-02-04 12:53 | [facility] Post Operative Brief Note ---
Immediate Operative Summary Operative Date Feb 04, 2017. Pre-Operative Diagnosis Rotator Cuff Tear R shoulder Post-Operative Diagnosis Rotator Cuff Tear R shoulder Procedure(s) Performed Right shoulder arthroscopy medium rotator cuff repair Surgeon Dr Springer Commercial Representative Surgeon(s) Walker Sahu PA-C Estimated Blood Loss 5 Findings as above Specimens none Complication(s) None Disposition Recovery Room / PACU
[2017-02-04 13:00] VITALS: BP 159/81; PULSE 96; TEMP 36.6; O2SAT 97
--- NOTE | 2017-02-15 19:47 | OPERATIVE REPORT ---
PREOPERATIVE DIAGNOSIS: Medium-sized rotator cuff tear of the right shoulder. POSTOPERATIVE DIAGNOSIS: Medium-sized rotator cuff tear with biceps tendinopathy and small area of grade 4 chondral changes on the humeral head. PROCEDURE: Right shoulder diagnostic arthroscopy with extensive debridement and acromioplasty medium-sized rotator cuff repair and arthroscopic biceps tenodesis. SURGEON: Dr. Mac Springer. CABLE STRETCHER AND TESTER: Walker Sahu PA-C whose health assistant was necessary for positioning the arm and helping with instrumentation. ANESTHESIA: General with a right interscalene nerve block. COMPLICATIONS: None. CONDITION: Stable to PACU. INDICATIONS: Sophei is a pleasant 66-year-old female who presented to our office with complaints of right shoulder pain. MRI and clinical examination were diagnostic for a medium-sized rotator cuff tear. After failing conservative treatment she elected to undergo arthroscopic rotator cuff repair. On February 04, 2017, she arrived at [facility] for the above procedure. She was seen in the preoperative holding area and the operative extremity was identified and signed. She was given a preoperative antiobiotic and a right interscalene nerve block. She was taken back to the operating room and laid on the table in supine position and put under general anesthesia. She was put into the beach chair position. The right shoulder was prepped and draped in sterile fashion. A time out was done and the patient and the operative extremity were properly identified. A scope was introduced in the posterior portal. Diagnostic arthroscopy showed an area of grade 4 chondral changes on the posterior aspect of the humeral head. The humeral head had a little bit of instability in the anterior inferior direction. There was some degenerative tearing of the labrum. The biceps tendon was intact but was very red and inflamed on the dorsal aspect. The subscapularis was intact. There was a tear in the entire supraspinatus. The infraspinatus and teres minor were intact. An anterior portal was made. A shaver was used to do a debridement of the intraarticular structures. The biceps tendon was arthroscopically tenotomized. Chondroplasty was also done of the posterior aspect of the humeral head and the labrum was debrided. The scope was then put into the subacromial space. A lateral port was made. A shaver was used to do a complete subacromial and subdeltoid bursectomy. Significant time was spent debriding these spaces. Cautery was then used to tease the coracoacromial ligament off the undersurface of the acromion and a 5-0 bur was used to clean the acromioplasty of a Bigliani type 3 acromion. A shaver was used to remove any excess debris and attention was directed toward the rotator cuff. An additional anterolateral portal was made and Julia cannulas were placed in each of the lateral portals. The greater tuberosity was prepared with a ring curette and a microfracture. The rotator cuff was then fixed with an Arthrex Speed Bridge configuration using 4.75 mm biocomposite swivel lock suture anchors and fiber tape. This gave a nice knotless Speed Bridge repair. The long head of the biceps tendon was tagged with a fiber link and incorporated into the anterolateral anchor to complete an arthroscopic biceps tenodesis. Multiple pictures were taken. The scope was placed back into the glenohumeral joint and the articular margin of the rotator cuff had been restored. Pictures were taken. Arthroscopic instruments were removed from the shoulder. Portal sites were closed with 3-0 Nylon. She was then placed in a soft dressing and adduction arm sling. She was then extubated and transferred to a [facility] and taken to the post-anesthesia care unit in stable condition. She tolerated the procedure well.
== END | disposition home or self-care (01) ==
LOC: C.ACU 06:31
PROVIDERS: ATTEND Orthopaedic Surgery
DX: S46.011A Strain of muscle(s) and tendon(s) of the rotator cuff of right shoulder, initial encounter (principal); M17.11 Unilateral primary osteoarthritis, right knee; X58.XXXA Exposure to other specified factors, initial encounter

== ENCOUNTER → 2017-05-02 | Outpatient (CLI) | payer OTHER, MEDICARE ==
[~2017-05-02] MED LIST changes: -ACETAMINOPHEN 1000 MG/100 ML IV IV ONE; -ACETAMINOPHEN 500 MG TAB PO SCH; -ATROPINE SULFATE 0.1 MG/ML 5ML SYR IV PRN; -BUPIVACAINE/EPINEPHRINE 0.25% 1:200,000 30 ML VIAL ONE; -CEFAZOLIN 3000 MG/65 ML D5W 65 ML IV SCH; -CHECK SCOPOLAMINE PATCH PLACEMENT SCH; -DEXAMETHASONE SOD INJ 4 MG/ML VIAL ONE; -DiphenhydrAMINE HCL 50 MG/ML VIAL ONE; -EpHEDrine SULFATE 50MG/5ML SYR ONE; -EpHEDrine SULFATE INJ 50 MG/ML AMP IV PRN; -EpINEphrine HCL INJ 1 MG/ML 5ML SYRINGE ONE; -FAMOTIDINE 20 MG TAB PO SCH; -FENTANYL CITRATE INJ 50 MCG/1 ML 2 ML VIAL ONE; -GABAPENTIN 300 MG CAP PO SCH; -GLYCOPYRROLATE INJ 0.2 MG/ML VIAL ONE; -HYDROmorphone INJ 2 MG/ML SYR/VIAL ONE; -LACTATED RINGER'S 1000ML 1,000 ML IV SCH; -LACTATED RINGER'S 1000ML IV SCH; -LIDOCAINE HCL 2% 2 ML VIAL (20MG/ML) ONE; -MIDAZOLAM HCL 1 MG/ML 2ML VIAL ONE; -NEOSTIGMINE METHYLSULFATE 5 MG/5 ML SYR ONE; -ONDANSETRON INJ 2 MG/ML 2 ML VIAL IV PRN; -ONDANSETRON INJ 2 MG/ML 2 ML VIAL ONE; -PHENYLEPHRINE 100MCG/ML 5ML SYR ONE; -PROPOFOL IV EMULSION 10 MG/ML 20 ML VIAL IV ONE; -RANITIDINE HCL 25 MG/ML INJ ONE; -ROCURONIUM BROMIDE 10 MG/ML 5 ML VIAL ONE; -ROPIVACAINE 0.5% 5 MG/ML 30 ML VIAL ONE; -SCOPOLAMINE 1.5 MG TDSY TD SCH; -SODIUM CHLORIDE 0.9% 1000ML 1,000 ML IV SCH; -TRAMADOL HCL 50 MG TAB PO PRN
--- NOTE | 2017-05-09 08:08 | CODING QUERY MEDICAL NECESSITY ---
SUPPORTING DIAGNOSIS NEEDED Dr. Nicholas, A supporting diagnosis is required for the test/procedure performed on this patient in order for us to be reimbursed by the patient's insurance. Please provide a supporting diagnosis for the following test/procedure listed below next to the test name along with your signature. *If there is no additional diagnosis for this patient that would support the following test/procedure please document that below next to the test/procedure. Test(s)/Procedure(s) that require a supporting diagnosis: * ([id number]) DXA BONE DENSITY, AXIAL DIAGNOSIS: DATE OF SERVICE: 05/02/17 Provider Signature: Date: Thank you John Talavera [facility] Information Management Once completed, please kindly fax back to [phone] For questions please call [phone]
== END | disposition home or self-care (01) ==
LOC: C.MAMM 10:48
PROVIDERS: ATTEND Obstetrics & Gynecology
DX: Z13.820 Encounter for screening for osteoporosis (principal)

== ENCOUNTER → 2017-06-15 | Outpatient (CLI) | payer OTHER, MEDICARE ==
[2017-06-15 14:13] LABS: IMMUNOGLOBULN M 86.6 mg/dL (40-230)
== END | disposition home or self-care (01) ==
LOC: C.LAB1850 12:09
PROVIDERS: ATTEND Internal Medicine Pulmonary Disease
DX: J45.901 Unspecified asthma with (acute) exacerbation (principal)

== ENCOUNTER → 2017-08-09 | Outpatient (CLI) | payer OTHER, MEDICARE ==
[~2017-08-09] MED LIST changes: +ACET-1256 PO; +ASPI-435 PO; +ASTN; +ATOR-54 PO; +CETI10TA84 PO; +CYAN10005 PO; +FLVHFA110 INH; +HYDR5SYP11 PO; +IBUP-1050 PO; -KETO10TA PO; +SCOP1.5D2 TD; +SYMIN160 INH; -TRAM-10 PO
[2017-08-09 13:10] LABS: BASO % 0.5 %; BASO ABS # 0.04 K/uL (0-0.2); EOS % 4.4 %; EOS ABS # 0.37 K/uL (0-0.5); HEMATOCRIT 44.2 % (37-47); HEMOGLOBIN 14.7 g/dL (12.0-16.0); IG# 0.02 K/uL (0.00-0.02); LYMPH % 22.3 %; LYMPH ABS # 1.86 K/uL (1.2-3.4); MEAN CELL VOLUME 82.9 fL (80-100); MEAN CORPUSCULAR HEMOGLOBIN 27.6 pg (25-34); MEAN CORPUSCULAR HGB CONC 33.3 g/dl (32-36); MEAN PLATELET VOLUME 11.5 fL (7.4-10.4); MONO % 9.1 %; MONO ABS # 0.76 K/uL (0.11-0.59); NEUT % 63.5 %; PLATELET COUNT 227 K/uL (130-400); RED CELL DISTRIBUTION WIDTH CV 15.6 % (11.5-14.5); RED CELL DISTRIBUTION WIDTH SD 47.1 fL (36.4-46.3); WHITE BLOOD COUNT 8.35 K/uL (4.8-10.8)
[2017-08-09 15:22] LABS: ALKALINE PHOSPHATASE 96 U/L (45-117); ALT/SGPT 37 U/L (12-78); AST/SGOT 23 U/L (15-37); BLOOD UREA NITROGEN 21 mg/dl (7-18); CALCIUM 9.6 mg/dl (8.5-10.1); CARBON DIOXIDE 27 mmol/L (21-32); CHOLESTEROL 252 mg/dl (0-200); GLUCOSE 96 mg/dl (70-99); LDL CHOLESTEROL CALCULATED 155 mg/dl; POTASSIUM 4.2 mmol/L (3.5-5.1); SODIUM 135 mmol/L (136-145)
--- NOTE | 2017-08-17 09:56 | CODING QUERY MEDICAL NECESSITY ---
CQSUPPORTING DIAGNOSIS NEEDED A supporting diagnosis is required for the test/procedure performed on this patient in order for us to be reimbursed by the patient's insurance. Please provide a supporting diagnosis for the following test/procedure listed below next to the test name along with your signature. *If there is no additional diagnosis for this patient that would support the following test/procedure please document that below next to the test/procedure. Test(s)/Procedure(s) that require a supporting diagnosis: DOS 08/09/17 VITAMIN B12 TEST Provider Signature: Date: Thank you Denise Owens Health Information Management Once completed, please kindly fax back to [phone] For questions please call [phone]
== END | disposition home or self-care (01) ==
LOC: C.LABBC 10:18
PROVIDERS: ATTEND Internal Medicine
DX: K21.9 Gastro-esophageal reflux disease without esophagitis (principal); E78.5 Hyperlipidemia, unspecified; I10 Essential (primary) hypertension; R73.09 Other abnormal glucose; E53.8 Deficiency of other specified B group vitamins

== ENCOUNTER → 2017-09-02 | Outpatient (CLI) | payer OTHER, MEDICARE ==
[~2017-09-02] MED LIST changes: -ACET-1256 PO; -ASPI-435 PO; -ASTN; -ATOR-54 PO; -CETI10TA84 PO; -CYAN10005 PO; -FLVHFA110 INH; -HYDR5SYP11 PO; -IBUP-1050 PO; -SCOP1.5D2 TD; -SYMIN160 INH
--- NOTE | 2017-09-02 13:25 | MAMMOGRAPHY REPORT ---
BILATERAL DIGITAL SCREENING MAMMOGRAM TOMOSYNTHESIS WITH CAD: 09/02/2017 CLINICAL HISTORY: Routine screening. TECHNIQUE: Breast tomosynthesis in addition to standard 2D mammography was performed. Current study was also evaluated with a Computer Aided Detection (CAD) system. COMPARISON: Comparison is made to exams dated: 04/29/2016 mammogram, 04/15/2015 mammogram - [facility], 11/20/2013 mammogram, and 11/13/2012 mammogram. BREAST COMPOSITION: There are scattered areas of fibroglandular density in both breasts. FINDINGS: No suspicious masses, calcifications, or areas of architectural distortion are noted in ei ther breast. There has been no significant interval change compared to prior exams. IMPRESSION: ACR BI-RADS CATEGORY 1: NEGATIVE There is no mammographic evidence of malignancy. A 1 year screening mammogram is recommended. The pa tient will receive written notification of the results. Approximately 10% of breast cancers are not detected with mammography. A negative mammographic report should not delay biopsy if a clinically suggestive mass is present. Kisha Suarez M.D. ah/:09/02/2017 12:41:56 Senior Product Designer: Naresh VICTOR(R)(M), [facility] letter sent: Normal 1/2 BI-RADS Code: ACR BI-RADS Category 1: Negative
== END | disposition home or self-care (01) ==
LOC: C.MAMM 11:51
PROVIDERS: ATTEND Obstetrics & Gynecology
DX: Z12.31 Encounter for screening mammogram for malignant neoplasm of breast (principal)

== ENCOUNTER → 2017-11-28 | Outpatient (CLI) | payer OTHER, MEDICARE ==
[2017-11-28 12:40] LABS: ALBUMIN 3.8 gm/dl (3.4-5.0); ALT/SGPT 34 U/L (12-78); AST/SGOT 20 U/L (15-37); BLOOD UREA NITROGEN 27 mg/dl (7-18); CALCIUM 9.2 mg/dl (8.5-10.1); CARBON DIOXIDE 28 mmol/L (21-32); CREATININE 0.67 mg/dl (0.60-1.20); GLUCOSE 93 mg/dl (70-99); POTASSIUM 4.1 mmol/L (3.5-5.1); SODIUM 139 mmol/L (136-145)
[2017-11-28 12:41] LABS: ALKALINE PHOSPHATASE 99 U/L (45-117); CHOLESTEROL 159 mg/dl (0-200); LDL CHOLESTEROL CALCULATED 86 mg/dl; TOTAL PROTEIN 7.3 gm/dl (6.4-8.2)
== END | disposition home or self-care (01) ==
LOC: C.LAB1850 10:39
PROVIDERS: ATTEND Internal Medicine
DX: E78.5 Hyperlipidemia, unspecified (principal)

== ENCOUNTER → 2017-12-09 | Outpatient (CLI) | payer OTHER, MEDICARE ==
--- NOTE | 2017-12-09 09:25 | DIAGNOSTIC IMAGING REPORT ---
MRI OF THE LUMBAR SPINE WITHOUT IV CONTRAST CLINICAL HISTORY: Right lower extremity radiculopathy. COMPARISON STUDY: No priors. TECHNIQUE: MRI of the lumbar spine is performed utilizing various T1 and T2-weighted sequences in the axial and sagittal planes. IV contrast was not administered for this examination. FINDINGS: Lumbar spine: Vertebral body height is maintained throughout the lumbar spine. There is a minimal chronic appearing superior endplate compression deformity of T11. There is 6 mm of anterolisthesis at L4-L5. Minimal retrolisthesis is seen at L1-L2 and L2-L3. There is straightening of the lumbar lordosis. Anterior osteophytes are seen throughout. The transverse and spinous processes are intact as visualized. There is no evidence of spondylolysis. No destructive bony lesion is seen. Small hemangiomas are noted in the bodies of L2 and L4. There is chronic degenerative endplate change with mild endplate edema seen at L5-S1. Chronic endplate change is also seen at L1-L2 and L2-L3. Intervertebral discs: Degenerative disc desiccation is seen throughout the lumbar spine. There is moderate to advanced loss of height at T12-L1, L1-L2, L4-L5, and L5-S1. Spinal cord: The visualized spinal cord is normal in morphology and signal intensity. The conus medullaris terminates at the level of L1. The nerve roots of the cauda equina are normal in morphology. T11-T12: There is a disc herniation with annular fissure eccentric to the right. This abuts the ventral right aspect of the cord. The neural foramina appear patent. T12-L1: There is a posterior disc bulge with annular fissure eccentric to the left. This effaces the ventral subarachnoid space. The neural foramina are widely patent. L1-L2: There is a disc bulge eccentric to the left with annular fissure. The neural foramina are patent. L2-L3: Minimal disc bulge is noted with annular fissure. The central canal and neural foramina are patent. L3-L4: There is minimal posterior disc bulge. There is no significant acquired compromise of the central canal. The disc bulge likely abuts the transiting bilateral L4 nerve roots. L4-L5: There is posterior disc bulge with annular fissure. In conjunction with anterolisthesis and hypertrophy of the ligamentum flavum there is moderate central canal stenosis at this level with a minimum AP diameter of 6 mm. There is bilateral subarticular stenosis. There is probable impingement on the exiting bilateral L4 and the transiting bilateral L5 nerve roots. Bulky facet arthropathy causes moderate bilateral neural foraminal stenosis. L5-S1: There is a small disc herniation. There is no significant acquired compromise of the central canal. There is bilateral subarticular stenosis. Facet arthropathy causes mild left neural foraminal stenosis. Sacrum: The visualized sacrum is normal in morphology and signal intensity. Soft tissues: There is fatty atrophy of the paraspinous musculature. A small cyst is noted in the upper pole of the left kidney. No retroperitoneal adenopathy is seen. IMPRESSION: 1. There is a disc herniation eccentric to the right at T11-T12 which abuts the ventral cord. 2. There is a disc herniation at L5-S1. 3. Multilevel lumbosacral spondylosis at additional levels as above with moderate central canal stenosis at L4-L5. See discussion for detailed level by level analysis. 4. Degenerative disc disease and endplate change as above. 5. No destructive bony process is identified. Dictated: 12/09/2017 7:57 AM Transcribed: 12/09/2017 9:25 AM [facility] Electronically signed by: Subhash Hutchinson M.D. 12/09/2017 9:46 AM Dictated Date/Time: 12/09/2017 7:57 AM
== END | disposition home or self-care (01) ==
LOC: C.MRIBC 07:08
PROVIDERS: ATTEND Internal Medicine
DX: M54.16 Radiculopathy, lumbar region (principal)

== ENCOUNTER 2018-11-24 07:46 | Inpatient (IN) ==
--- NOTE | 2018-10-31 13:00 | Anesthesiology Consultation ---
Date of Service October 31, 2018 Assessment & Plan (1) Encounter for pre-operative examination: *H/O DIFFICULT INTUBATION* *GLIDESCOPE #3 2017 SHOULDER SCOPE* Chart Review Chart Review: Acceptable Risk for Surgery and Patient seen in Pre Admission Testing Teaching & Discussion Instructed NPO after midnight before surgery, except medications with 15 cc of water. Medication instructions provided according to the PAT guidelines. History Surgery Operation Date: 11/24/18 11:30 Proposed Procedures p Left Reverse Total Shoulder Arthroplasty - Mac Springer, Height/Weight Height: 5 ft 6 in Weight: 110.2 kg Allergies Allergy/AdvReac Type Severity Reaction Status Date / Time aluminum Allergy Unknown fatigue,KELLOGG, Verified 10/25/18 14:15 chills,'ach iness' capsaicin Allergy Unknown GI Verified 10/25/18 14:15 upset/diarrhea celecoxib Allergy Unknown "SEVERE Verified 10/25/18 14:15 GENERAL BODY EDEMA" diclofenac Allergy Unknown GI Verified 10/25/18 14:15 upset/diarrhea Diclopak Allergy Unknown GI Verified 04/07/18 08:23 upset/diarrhea diphtheria toxoid,fluid Allergy Unknown fatigue,KELLOGG, Verified 10/25/18 14:15 chills,'ach iness' pneumococcal vaccine Allergy Unknown fatigue,KELLOGG, Verified 10/25/18 14:15 chills,'ach iness' pollen extracts Allergy Unknown HAY FEVER Verified 10/25/18 14:15 sorbitan esters Allergy Unknown fatigue,KELLOGG, Verified 10/25/18 14:15 chills,'ach iness' fentanyl AdvReac Unknown severe Verified 10/25/18 14:15 nausea and dizziness Latex2 -Systemic Allergic Allergy Severe FACIAL Uncoded 06/16/18 11:21 Response EDEMA AND ITCHING/RASH NARCOTIC PAIN MEDICINE AdvReac Severe SEVERE N/V Uncoded 06/16/18 11:21 AND DIZZINESS Medications Home Medications Medication Instructions Recorded Confirmed Last Taken acetaminophen 500 mg tablet 500 mg PO Q8H PRN tab 06/15/18 10/25/18 Unknown aspirin 81 mg tablet,delayed 81 mg PO QAM 06/15/18 10/25/18 Unknown release budesonide-formoterol HFA 160 2 puffs INH BID 06/15/18 10/25/18 Unknown mcg-4.5 mcg/actuation aerosol inhaler cetirizine 10 mg tablet 10 mg PO QAM PRN tab 06/15/18 10/25/18 Unknown cholecalciferol (vitamin D3) 2,000 2,000 units PO QAM 06/15/18 10/25/18 Unknown unit capsule cyanocobalamin (vitamin B-12) 1,000 mcg PO QAM 06/15/18 10/25/18 Unknown 1,000 mcg capsule esomeprazole magnesium 40 mg 40 mg PO QAM 06/15/18 10/25/18 Unknown capsule,delayed release hydrochlorothiazide 50 mg tablet 50 mg PO QAM 06/15/18 10/25/18 Unknown ibuprofen 200 mg tablet 200 mg PO QID PRN 06/15/18 10/25/18 Unknown loratadine 10 mg tablet 10 mg PO DAILY PRN 06/15/18 10/25/18 Unknown meclizine 12.5 mg tablet 12.5 mg PO TID PRN 06/15/18 10/25/18 Unknown omega-3 fatty acids 1,000 mg 1,000 mg PO BID cap 06/15/18 10/25/18 Unknown capsule potassium chloride ER 20 mEq 20 meq PO BID 06/15/18 10/25/18 Unknown tablet,extended release(part/cryst) scopolamine 1 mg over 3 days 1 patch TD Q3D PRN 06/15/18 10/25/18 Unknown transdermal patch trazodone 50 mg tablet 50 mg PO HS tab 06/15/18 10/25/18 Unknown fluticasone propionate [Flonase 1 spray INTRANASAL DAILY PRN 10/25/18 10/25/18 Unknown Allergy Relief] albuterol sulfate [ProAir HFA] 1 puff INHALATION Q6H PRN 10/31/18 10/31/18 Unknown rosuvastatin [Crestor] 5 mg PO 3XWK 10/31/18 10/31/18 Unknown Past Medical History Medical History Trochanteric bursitis (Chronic) Sacroiliac inflammation (Chronic) Lumbar spinal stenosis (Chronic) moderate L4-5 Lumbar disc herniation (Chronic) L5-S1 Seasonal allergies (Chronic) Meniere disease (Chronic) REASON FOR HCTZ HLD (hyperlipidemia) (Chronic) GERD (gastroesophageal reflux disease) (Chronic) Asthma (Chronic) Symbicort daily, has not used albuterol rescue in > 1 yr Nausea and vomiting after administration of anesthetic agent Past Surgical History Surgical History Hx of tonsillectomy (Resolved) S/P foot surgery, left (Resolved) multiple H/O sinus surgery (Resolved) multiple History of total left knee replacement (Resolved) History of total right knee replacement (Resolved) Hx of repair of right rotator cuff (Resolved) Hx of cholecystectomy (Resolved) Hx of hysterectomy (Resolved) History of eye surgery MUSCLE REPAIR OF LEFT EYE CHILD = Past Anesthesia History Difficult Airway (h/o Glidescope) and Other Strong personal and FHX of PONV 2016 RCR: Easy Glidescope #3, ETT 7.0 History of PONV Yes (multiple episodes) Motion Sickness Screening History of Motion Sickness: Yes Social History Smoking Status: Never smoker Do You Dip or Chew Tobacco: No Hx Alcohol Use: No Alcohol Intake Frequency Comment: 0 Hx Substance Use: No substance use type: does not use Exercise / Class Metabolic Activity II 4-5 Yardwork/Stairs/Walk up hill (Denies CP or SOB with stairs) Review of Systems Pt denies any recent chest pain, shortness of breath, palpitations, cough, fever or URI. Physical Exam Vital Signs BP: 103/68 P: 75bpm SPO2: 97% RA T: 98.2 F R: 14 ENMT Mouth: + dental restorations (multiple caps, permanent wire behind front teeth); no chipped teeth and no loose teeth Thyromental Distance: > or= 3.5 Finger Breadths (3.5) Mallampati Class: III Neck normal visual inspection; neck extension not limited Respiratory normal respiratory effort Auscultation: lungs clear to auscultation bilaterally Cardiovascular Rate/Rhythm: regular rate and regular rhythm Heart Sounds: no murmur Vessels: no carotid bruit Extremities: no edema Testing Electrocardiogram Date: 10/31/18 Findings: + NSR @ (71) Chest X-Ray Date: 10/31/18 Findings: + NAD Laboratory Results 10/31/18 13:03 10/31/18 13:03 Blood Type O Positive 10/31/18 13:03 Antibody Screen NEGATIVE 10/31/18 13:03 PT 10.1 Seconds (9.0-12.0) 10/31/18 13:03 INR 1.0 (0.9-1.1) 10/31/18 13:03 APTT 26.0 Seconds (21.0-31.0) 10/31/18 13:03
--- NOTE | 2018-10-31 13:02 | PAT Medication Instructions ---
Medication Instructions Date of Service October 31, 2018 Home Medications acetaminophen 500 mg tablet 500 mg PO Q8H PRN aspirin 81 mg tablet 81 mg PO QAM budesonide-formoterol HFA 160mcg 2 puffs INH BID cetirizine 10 mg tablet 10 mg PO QAM PRN cholecalciferol (vitamin D3) 2,000 2,000 units PO QAM rosuvastatin [Crestor] 5 mg PO 3XWK cyanocobalamin (vitamin B-12) 1,000 mcg PO QAM esomeprazole magnesium 40 mg 40 mg PO QAM fluticasone propionate 110 2 puffs INH BID hydrochlorothiazide 50 mg tablet 50 mg PO QAM ibuprofen 200 mg tablet 200 mg PO QID PRN loratadine 10 mg tablet 10 mg PO DAILY PRN meclizine 12.5 mg tablet 12.5 mg PO TID PRN omega-3 fatty acids 1,000 mg 1,000 mg PO BID potassium chloride ER 20 mEq 20 meq PO BID scopolamine 1 mg over 3 days 1 patch TD Q3D PRN trazodone 50 mg tablet 50 mg PO HS fluticasone propionate [Flonase Allergy Relief] 1 spray INTRANASAL DAILY PRN ProAir Inhaler 1 puff prn SOB ASK your surgeon for instructions ibuprofen 200 mg tablet 200 mg PO QID PRN STOP taking 2 weeks before surgery omega-3 fatty acids 1,000 mg 1,000 mg PO BID DO NOT take the morning of surgery cetirizine 10 mg tablet 10 mg PO QAM PRN cholecalciferol (vitamin D3) 2,000 2,000 units PO QAM cyanocobalamin (vitamin B-12) 1,000 mcg PO QAM hydrochlorothiazide 50 mg tablet 50 mg PO QAM loratadine 10 mg tablet 10 mg PO DAILY PRN potassium chloride ER 20 mEq 20 meq PO BID fluticasone propionate [Flonase Allergy Relief] 1 spray INTRANASAL DAILY PRN Take morning of surgery With a small sip of water, OTHERWISE NOTHING TO EAT OR DRINK AFTER MIDNIGHT: acetaminophen 500 mg tablet 500 mg PO Q8H PRN (if needed) aspirin 81 mg tablet 81 mg PO QAM rosuvastatin [Crestor] 5 mg PO 3XWK budesonide-formoterol HFA 160mcg 2 puffs INH BID esomeprazole magnesium 40 mg 40 mg PO QAM meclizine 12.5 mg tablet 12.5 mg PO TID PRN (if needed) scopolamine 1 mg over 3 days 1 patch TD Q3D PRN (if needed) fluticasone propionate [Flonase Allergy Relief] 1 spray INTRANASAL DAILY PRN (if needed) ProAir Inhaler 1 puff prn SOB (if needed, and bring with you to the hospital) Take evening before surgery acetaminophen 500 mg tablet 500 mg PO Q8H PRN (if needed) budesonide-formoterol HFA 160mcg 2 puffs INH BID cetirizine 10 mg tablet 10 mg PO QAM PRN (if needed) loratadine 10 mg tablet 10 mg PO DAILY PRN (if needed) meclizine 12.5 mg tablet 12.5 mg PO TID PRN (if needed) potassium chloride ER 20 mEq 20 meq PO BID scopolamine 1 mg over 3 days 1 patch TD Q3D PRN (if needed) trazodone 50 mg tablet 50 mg PO HS fluticasone propionate [Flonase Allergy Relief] 1 spray INTRANASAL DAILY PRN (if needed) ProAir Inhaler 1 puff prn SOB (if needed) Other Notes If you have any questions please call us at [phone] or [phone] or [phone] or [phone]
--- NOTE | 2018-10-31 13:56 | XRay Report ---
XR chest Pre-admission PA/Lat CLINICAL HISTORY: Preoperative chest COMPARISON STUDY: 06/13/2017 FINDINGS: The heart remains borderline enlarged. There is no failure. There is no acute parenchymal c onsolidation. There is minor basilar atelectasis/scarring.[ IMPRESSION: No active disease in the chest. Electronically signed by: Justice Adams M.D. 10/31/2018 1:55 PM
[2018-10-31 14:11] LABS: Basophils # (auto) 0.05 K/uL (0-0.2); Basophils % (auto) 0.5 %; Eosinophils # (auto) 0.28 K/uL (0-0.5); Hematocrit (blood only) 39.5 % (37-47); Hemoglobin 13.1 g/dL (12.0-16.0); Immature Granulocytes # (auto) 0.02 K/uL (0.00-0.02); Immature Granulocytes % (auto) 0.2 %; Lymphocytes # (auto) 2.46 K/uL (1.2-3.4); Lymphocytes % (auto) 26.6 %; Mean Corpuscular Hgb Conc 33.2 g/dL (32-36); Mean Corpuscular Volume 85.3 fL (80-100); Mean Platelet Volume 11.3 fL (7.4-10.4); Monocytes # (auto) 0.97 K/uL (0.11-0.59); Monocytes % (auto) 10.5 %; Neutrophils # (auto) 5.47 K/uL (1.4-6.5); Neutrophils % (auto) 59.2 %; Platelet Count 254 K/uL (130-400); RDW Coefficient of Variation 15.1 % (11.5-14.5); RDW Standard Deviation 46.7 fL (36.4-46.3); Red Blood Count 4.63 M/uL (4.2-5.4); White Blood Count 9.25 K/uL (4.8-10.8)
[2018-10-31 14:39] LABS: BUN Creatinine Ratio 36.4 (10-20); Calcium 8.7 mg/dl (8.5-10.1); Creatinine Clr Calc Pharmacy 98.1 ml/min; Est GFR (African American) 103.7; Est GFR (Non-African American) 89.4; Potassium 3.7 mmol/L (3.5-5.1)
[2018-10-31 15:21] LABS: Prothrombin Time 10.1 Seconds (9.0-12.0)
--- NOTE | 2018-11-23 20:28 | History & Physical Report ---
Date of Service November 23, 2018 Assessment & Plan (1) Rotator cuff arthropathy of left shoulder: We will proceed with a left reverse total shoulder arthroplasty. Postoperatively she will be placed in a sling and kept overnight in the hospital for postop medical management. She plans to use energy physical therapy upon discharge. Present on Admission?: Yes History of Present Illness Chief Complaint: Rotator cuff arthropathy of the left shoulder Primary Care Provider: Leandro Vallejo MD Sophie is a pleasant 68-year-old female who slipped and fell on [employer]. She landed directly onto her shoulder. She had significant pain and weakness since. MRI and clinical examination were diagnostic for chronic retracted rotator cuff tear of the left shoulder. There is also some osteoarthritis. After failing conservative treatment, she like to proceed with a reverse left shoulder arthroplasty. Allergies Allergy/AdvReac Type Severity Reaction Status Date / Time aluminum Allergy Unknown fatigue,KELLOGG, Verified 10/25/18 14:15 chills,'ach iness' capsaicin Allergy Unknown GI Verified 10/25/18 14:15 upset/diarrhea celecoxib Allergy Unknown "SEVERE Verified 10/25/18 14:15 GENERAL BODY EDEMA" diclofenac Allergy Unknown GI Verified 10/25/18 14:15 upset/diarrhea Diclopak Allergy Unknown GI Verified 04/07/18 08:23 upset/diarrhea diphtheria toxoid,fluid Allergy Unknown fatigue,KELLOGG, Verified 10/25/18 14:15 chills,'ach iness' pneumococcal vaccine Allergy Unknown fatigue,KELLOGG, Verified 10/25/18 14:15 chills,'ach iness' pollen extracts Allergy Unknown HAY FEVER Verified 10/25/18 14:15 sorbitan esters Allergy Unknown fatigue,KELLOGG, Verified 10/25/18 14:15 chills,'ach iness' fentanyl AdvReac Unknown severe Verified 10/25/18 14:15 nausea and dizziness Latex2 -Systemic Allergic Allergy Severe FACIAL Uncoded 06/16/18 11:21 Response EDEMA AND ITCHING/RASH NARCOTIC PAIN MEDICINE AdvReac Severe SEVERE N/V Uncoded 06/16/18 11:21 AND DIZZINESS Home Medications Home Medications Medication Instructions Recorded Confirmed Type acetaminophen 500 mg tablet 500 mg PO Q8H PRN tab 06/15/18 10/25/18 History aspirin 81 mg tablet,delayed 81 mg PO QAM 06/15/18 10/25/18 History release budesonide-formoterol HFA 160 2 puffs INH BID 06/15/18 10/25/18 History mcg-4.5 mcg/actuation aerosol inhaler cetirizine 10 mg tablet 10 mg PO QAM PRN tab 06/15/18 10/25/18 History cholecalciferol (vitamin D3) 2,000 2,000 units PO QAM 06/15/18 10/25/18 History unit capsule cyanocobalamin (vitamin B-12) 1,000 mcg PO QAM 06/15/18 10/25/18 History 1,000 mcg capsule esomeprazole magnesium 40 mg 40 mg PO QAM 06/15/18 10/25/18 History capsule,delayed release hydrochlorothiazide 50 mg tablet 50 mg PO QAM 06/15/18 10/25/18 History ibuprofen 200 mg tablet 200 mg PO QID PRN 06/15/18 10/25/18 History loratadine 10 mg tablet 10 mg PO DAILY PRN 06/15/18 10/25/18 History meclizine 12.5 mg tablet 12.5 mg PO TID PRN 06/15/18 10/25/18 History omega-3 fatty acids 1,000 mg 1,000 mg PO BID cap 06/15/18 10/25/18 History capsule potassium chloride ER 20 mEq 20 meq PO BID 06/15/18 10/25/18 History tablet,extended release(part/cryst) scopolamine 1 mg over 3 days 1 patch TD Q3D PRN 06/15/18 10/25/18 History transdermal patch trazodone 50 mg tablet 50 mg PO HS tab 06/15/18 10/25/18 History fluticasone propionate [Flonase 1 spray INTRANASAL DAILY PRN 10/25/18 10/25/18 History Allergy Relief] albuterol sulfate [ProAir HFA] 1 puff INHALATION Q6H PRN 10/31/18 10/31/18 History rosuvastatin [Crestor] 5 mg PO 3XWK 10/31/18 10/31/18 History Past Med/Surg History Medical History Trochanteric bursitis (Chronic) Sacroiliac inflammation (Chronic) Lumbar spinal stenosis (Chronic) moderate L4-5 Lumbar disc herniation (Chronic) L5-S1 Seasonal allergies (Chronic) Meniere disease (Chronic) REASON FOR HCTZ HLD (hyperlipidemia) (Chronic) GERD (gastroesophageal reflux disease) (Chronic) Asthma (Chronic) Symbicort daily, has not used albuterol rescue in > 1 yr Surgical History Hx of tonsillectomy (Resolved) S/P foot surgery, left (Resolved) multiple H/O sinus surgery (Resolved) multiple History of total left knee replacement (Resolved) History of total right knee replacement (Resolved) Hx of repair of right rotator cuff (Resolved) Hx of cholecystectomy (Resolved) Hx of hysterectomy (Resolved) History of eye surgery MUSCLE REPAIR OF LEFT EYE CHILD = Nausea and vomiting after administration of anesthetic agent Social History Preferred Language: Azeri Communication Ability: Effective Beliefs That Will Affect Care: None Current Living Situation: Spouse Feels Safe at Home: Yes Smoking Status: Never smoker Second Hand Exposure: No Hx Alcohol Use: No Hx Substance Use: No Review of Systems All systems reviewed & are unremarkable except as noted in HPI & below Physical Exam Constitutional: WD/WN, vitals as above Eyes: PERRL, conjunctivae normal, anicteric sclerae ENMT: external ear and nose normal, oropharynx normal Neck: trachea midline, no thyromegaly Respiratory: normal respiratory effort Cardiovascular: RRR, no murmur, no edema Gastrointestinal (Abdomen): normal bowel sounds, soft, nontender, no hepatosplenomegaly Musculoskeletal: Physical examination of the left shoulder reveals decreased range of motion and significant weakness. There is tenderness palpation along the anterior glenohumeral joint line. The right upper extremity is neurovascularly intact. Psychiatric: A+Ox3, euthymic affect Results & Data Diagnostic Findings Radiographs of the left shoulder show some signs of osteoarthritis with blunting of the greater tuberosity and some superior migration of the humeral head on the glenoid.
[~2018-11-24 07:46] MED LIST changes: +ACETAMINOPHEN 500 MG TAB PO SCH; -AMOX250C3 PO; -BECL0.072 INH; +BUPIVACAINE 0.5 % 5 MG/1 ML PF 10ML VIAL ONE; +CEFAZOLIN 2000MG 2,000 MG/15 ML SYR IV SCH; -CHOL2000 PO; -CYAN1CAP3 PO; -DSY/50 PO; -ESOM40GR PO; +FAMOTIDINE 20 MG TAB PO SCH; +GABAPENTIN 300 MG PO SCH; -HYDR50TA3 PO; -LORA10CA2 PO; +LR 15ML/HR IV SCH; +LR 60ML/HR IV SCH; -MCRK20 PO; -MECL1TAB40 PO; -OMEG10002 PO; +ROPIVACAINE 0.5% HCL/PF 150 MG, BUPIVACAINE 0.5% MPF 30 ML, EPINEPHrine 30MG/30ML (OR U... INFIL SCH; +TRANEXAMIC ACID 1,000 MG **IV Intra-op IV SCH; +TRANEXAMIC ACID 1,000 MG **IV Pre-op IV SCH; -VLM2 PO; +[UNRECOGNIZED DRUG - REMARK] SCH
[2018-11-24] MEDS ORDERED: DEXAMETHASONE SOD INJ 4 MG/ML VIAL ONE (08:31)
[2018-11-24] MEDS ORDERED: ROCURONIUM BROMIDE 10 MG/ML 5 ML VIAL ONE (08:31)
[2018-11-24] MEDS ORDERED: PROPOFOL IV EMULSION 10 MG/ML 20 ML VIAL IV ONE (08:31)
[2018-11-24] MEDS ORDERED: ONDANSETRON INJ 2 MG/ML 2 ML VIAL ONE (08:31)
[2018-11-24] MEDS ORDERED: SUCCINYLCHOLINE CHLORIDE 20 MG/ML 10 ML VIAL ONE (08:31)
[2018-11-24] MEDS ORDERED: fentaNYL citrate 100 MCG/2 ML VIAL ONE (08:32)
[2018-11-24] MEDS ORDERED: MIDAZOLAM HCL 1 MG/ML 2ML VIAL ONE (08:32)
--- NOTE | 2018-11-24 09:01 | History & Physical Bridge Note ---
Date of Service November 24, 2018 History & Physical Bridge Note I have examined the patient, reviewed the History & Physical and in the interval since the performance of the History & Physical I have noted the following changes of clinical significance: no changes noted
[2018-11-24] MEDS: SCOPOLAMINE 1.5 MG TDSY TD SCH ×2 (09:04→13:25)
[2018-11-24] MEDS ORDERED: ACETAMINOPHEN 1000 MG/100 ML IV IV ONE (09:27)
[2018-11-24] MEDS ORDERED: POVIDONE-IODINE OP SOLN 30 ML BTL ONE (09:29)
[2018-11-24] MEDS ORDERED: ORTHO JOINT ANESTHETIC ONE (09:29)
[2018-11-24] MEDS ORDERED: ePHEDrine sulfate 50 MG/ML AMP ONE (11:33)
--- NOTE | 2018-11-24 12:26 | Operative Report ---
Post Operative Report Pre & Post Diagnosis Operation Date: 11/24/18 09:50 Pre-Op Diagnosis: Chronic Rotator Cuff Tear Right Shoulder Post-Op Diagnosis: Chronic Rotator Cuff Tear Right Shoulder Procedure Operation Date: 11/24/18 09:50 Actual Procedures p Left Reverse Total Shoulder Arthroplasty(Left) - Mac Springer DO Surgeon Mac Springer DO [employer] Mac Bellamy PAC Estimated Blood Loss 250 Findings Consistent with Post-Op Diagnosis Specimens Left humeral head Complications none Disposition Disposition: Recovery Room Indications Sophie is a pleasant 68-year-old female who fell about 4 months ago directly onto her left shoulder. She had a pseudoparalysis. She had significant pain. MRI was done which showed a massive retracted rotator cuff tear. It appeared to be a chronic tear. After failing conservative treatment, she elected to proceed with a left reverse shoulder arthroplasty. Description of Procedure Implants used: I used a [employer] Comprehensive reverse total shoulder arthroplasty system with a size 12 press fit mini humeral stem, a standard humeral tray and a standard humeral bearing, a 25 mm mini baseplate with a 6.5 mm central screw and superior and inferior locking screws, and a size 36 mm eccentric glenosphere. The patient arrived at [facility] for the above procedure. There were seen in the preoperative holding area and the operative extremity was identified and signed. They were given a preoperative antibiotic and an interscalene nerve block. They were taken back to the operating room, laid on table in supine position, and put under general anesthesia. They were then put into the beachchair position. The shoulder was then prepped and draped in sterile fashion. A timeout was done and the patient in the operative extremity was properly identified. A deltopectoral approach was used. Dissection was taken down through the fascia and the deltoid was retracted laterally and the conjoined tendon was retracted medially. The anterior shoulder was exposed. The long head of the biceps tendon was tenodesed to the upper border of the pectoralis major. The subscapularis was then released off the lesser tuberosity with a centimeter of cuff tissue remaining. The inferior capsule was released and the humeral head was dislocated. A canal finding reamer was sent down the center of the humeral canal. Sequential reaming up to a size 12 reamer was done. Off that reamer, a proximal humeral resection guide was placed. The proximal humerus was resected at 135 of inclination and 25 of retroversion. Osteophytes were then removed and the glenoid was exposed. Time was spent doing a complete capsular and labral release. The glenoid guide was then placed in the inferior aspect of the glenoid. A 3.2 mm Steinmann pin was then placed into the glenoid vault at 10 of inclination. The glenoid baseplate was then reamed. The final size 25 mm mini baseplate was then impacted in the place. A 6.5 mm central screw was then placed followed by superior and inferior locking screws. A 36 mm eccentric glenoid sphere was then impacted into place. Surrounding soft tissues were then injected with 100 cc an orthopedic pain control cocktail. The proximal humerus was then exposed. Sequential broaching of the humerus up to a size 12 broach was done. Off that broach a standard humeral tray was trialed. The shoulder was then reduced, brought through a full range of motion and felt to be stable. The shoulder was then dislocated and the broach was removed. The final size 12 mini press-fit humeral stem was then impacted into place. A standard humeral bearing was then snapped onto a standard humeral tray and the ring-lock mechanism was engaged. The humeral tray was then impacted onto the humeral stem. The shoulder was once again reduced, brought through a full range of motion and felt to be stable. The subscapularis was then tenodesed back to the lesser tuberosity with transosseous FiberWire sutures and side to side sutures with the arm in 45 of external rotation. A dilute betadyne lavage was then done for 3 minutes. The joint was then irrigated with normal saline solution. Hemostasis was obtained. The skin was then closed with 2-0 Vicryl, 3-0V lock suture, and cole. A soft dressing and a regular arm sling was placed. The patient was then extubated and transferred to a hospital bed. They were taken to the postanesthesia care unit in stable condition. They tolerated the procedure well. I attest to the content of the Intraoperative Record and any orders documented therein. Any exceptions are noted below.
--- NOTE | 2018-11-24 13:34 | XRay Report ---
XR shoulder LT min 2V routine CLINICAL HISTORY: Post shoulder surgery COMPARISON: Left shoulder radiographs August 07, 2018. FINDINGS: Alignment of the left shoulder arthroplasty is anatomic. There is no fracture or unexpecte d radiopaque foreign body. There are skin cole. IMPRESSION: Expected findings following left shoulder arthroplasty. Electronically signed by: Edmundo Carpenter M.D. 11/24/2018 1:33 PM
--- NOTE | 2018-11-24 14:23 | Anesthesiology Progress Note ---
Date of Service November 24, 2018 Anesthesia Post Procedure Vital Signs Vital Signs: Temp Pulse Resp BP Pulse Ox 11/24/18 14:15 69 12 111/65 97 11/24/18 14:00 73 17 114/67 97 11/24/18 13:45 81 19 128/79 97 11/24/18 13:35 36.3 C L 90 18 124/74 96 11/24/18 13:25 79 15 128/69 95 11/24/18 13:15 79 15 128/69 95 11/24/18 13:05 88 16 122/74 96 11/24/18 12:55 85 14 119/61 97 11/24/18 12:48 36.1 C L 90 12 118/68 96 Pain Intensity Left Shoulder: Pain Intensity: 0 Notes Mental Status: alert / awake / arousable and participated in evaluation Patient Amnestic to Procedure: Yes Nausea / Vomiting: adequately controlled Pain: adequately controlled Airway Patency, RR, SpO2: stable & adequate BP & HR: stable & adequate Hydration State: stable & adequate Anesthetic Complications: no major complications apparent and Pt Satisfied with anesthetic care
[2018-11-24] MEDS ORDERED: SODIUM CHLORIDE 0.9% 1000ML 1,000 ML IV SCH (14:46)
[2018-11-24] MEDS ORDERED: NALOXONE HCL 0.4 MG/1 ML VIAL/CARP IV PRN (14:46)
[2018-11-24] MEDS ORDERED: HYDROmorphone INJ 0.5 MG/0.5 ML SYR IV PRN (14:46)
[2018-11-24] MEDS ORDERED: BISACODYL 10 MG SUPP PR PRN (14:46)
[2018-11-24] MEDS ORDERED: FLUTICASONE PROPIONATE NA SPR 16 GM BTL PRN (14:46)
[2018-11-24] MEDS ORDERED: MAGNESIUM HYDROXIDE SUSP 30 ML UDC PO PRN (14:46)
[2018-11-24] MEDS ORDERED: METOCLOPRAMIDE HCL INJ 5 MG/ML 2 ML VIAL IV PRN (14:46)
[2018-11-24] MEDS ORDERED: ALBUTEROL HFA 8 GM INHALER INH PRN (14:46)
[2018-11-24] MEDS ORDERED: MECLIZINE 12.5 MG TAB PO PRN (14:46)
[2018-11-24] MEDS ORDERED: TRAMADOL HCL 50 MG TABLET PO PRN (14:46)
[2018-11-24] MEDS ORDERED: SCOPOLAMINE 1.5 MG TDSY TD PRN (14:46)
[2018-11-24] MEDS ORDERED: ONDANSETRON INJ 2 MG/ML 2 ML VIAL IV PRN (14:46)
[2018-11-24] MEDS ORDERED: ROSUVASTATIN CALCIUM 5 MG TAB PO SCH (15:30)
[2018-11-24] MEDS: KETOROLAC TROMETHAMINE 15 MG/ML VIAL IV SCH ×2 (15:48→21:29)
[2018-11-24] MEDS: ACETAMINOPHEN 500 MG TAB PO SCH ×2 (15:48→21:29)
[2018-11-24] MEDS: CHECK SCOPOLAMINE PATCH PLACEMENT SCH ×2 (15:48→23:10)
[2018-11-24] MEDS ORDERED: CHECK SCOPOLAMINE PATCH PLACEMENT SCH (16:00)
[2018-11-24] MEDS: CEFAZOLIN 2000MG 2,000 MG/15 ML SYR IV SCH (19:12)
[2018-11-24] MEDS: DOCUSATE SODIUM 100 MG CAP PO SCH (20:15)
[2018-11-24] MEDS: BUDESONIDE/FORMOTEROL FUMARATE 160/4.5 60 PUFFS/INHALER INH SCH (20:17)
[2018-11-24] MEDS: POTASSIUM CHLORIDE 20 MEQ TABCR PO SCH (20:18)
[2018-11-24] MEDS ORDERED: SENNA 8.6 MG TAB PO SCH (21:00)
[2018-11-24] MEDS ORDERED: TRAZODONE HCL 50 MG TAB PO SCH (21:00)
[2018-11-25] MEDS: CEFAZOLIN 2000MG 2,000 MG/15 ML SYR IV SCH (03:47)
[2018-11-25] MEDS: KETOROLAC TROMETHAMINE 15 MG/ML VIAL IV SCH ×2 (03:48→08:59)
[2018-11-25] MEDS: ACETAMINOPHEN 500 MG TAB PO SCH (05:43)
[2018-11-25 07:11] LABS: Basophils # (auto) 0.01 K/uL (0-0.2); Basophils % (auto) 0.1 %; Hemoglobin 12.6 g/dL (12.0-16.0); Immature Granulocytes # (auto) 0.06 K/uL (0.00-0.02); Immature Granulocytes % (auto) 0.3 %; Lymphocytes # (auto) 1.43 K/uL (1.2-3.4); Lymphocytes % (auto) 7.6 %; Mean Corpuscular Hgb Conc 34.1 g/dL (32-36); Mean Corpuscular Volume 83.1 fL (80-100); Mean Platelet Volume 10.5 fL (7.4-10.4); Monocytes # (auto) 1.74 K/uL (0.11-0.59); Monocytes % (auto) 9.3 %; Neutrophils # (auto) 15.48 K/uL (1.4-6.5); Neutrophils % (auto) 82.7 %; Platelet Count 223 K/uL (130-400); RDW Coefficient of Variation 15.2 % (11.5-14.5); RDW Standard Deviation 46.7 fL (36.4-46.3); Red Blood Count 4.45 M/uL (4.2-5.4); White Blood Count 18.72 K/uL (4.8-10.8)
[2018-11-25 07:43] LABS: BUN Creatinine Ratio 25.2 (10-20); Calcium 9.8 mg/dl (8.5-10.1); Creatinine Clr Calc Pharmacy 91.5 ml/min; Est GFR (African American) 96.5; Est GFR (Non-African American) 83.2; Potassium 4.3 mmol/L (3.5-5.1)
--- NOTE | 2018-11-25 07:55 | Orthopedic Progress Note ---
Date of Service November 25, 2018 Assessment & Plan (1) Rotator cuff arthropathy of left shoulder: Overall she is doing very well. She is not having much pain in the shoulder. She is on tramadol as needed for pain control. She will be seen by physical therapy this morning for range of motion exercises. She can be discharged home later today with [facility]. She will follow-up with orthopedics in 2 weeks. Present on Admission?: Yes Estrellita Bariros was seen and examined at bedside this morning. Overall she is doing very well. She is not having much pain in the shoulder. She was able to get some sleep last night. She has no complaints. Physical Exam Musculoskeletal: On physical examination of the left shoulder, dressing is clean and dry. She is wearing her sling as instructed. Her radial median ulnar nerves are checked and intact to the wrist. She still some numbness in her hand which is to be expected. Results & Data Vital Signs (Past 12 Hours) Vital Signs Temp Pulse Resp BP Pulse Ox 11/25/18 07:22 36.9 C 74 15 92/60 L 94 11/25/18 03:07 36.6 C 80 14 93/59 L 94 11/24/18 23:33 36.5 C 68 14 97/62 L 93 11/24/18 20:00 36.9 C 95 H 18 106/68 91 Laboratory Results H & H 10/31/18 11/25/18 Range/Units 13:03 06:30 Hgb 13.1 12.6 (12.0-16.0) g/dL Hct 39.5 37.0 (37-47) % Coagulation 10/31/18 Range/Units 13:03 INR 1.0 (0.9-1.1) Diagnostic Findings Postoperative x-rays of the left shoulder show the prosthesis to be in anatomic alignment without any evidence of fracture, dislocation, or loosening.
--- NOTE | 2018-11-25 07:56 | Discharge Summary ---
Date of Service November 25, 2018 Admission HPI Per Admitting Provider Sophie is a pleasant 68-year-old female who slipped and fell on [employer]. She landed directly onto her shoulder. She had significant pain and weakness since. MRI and clinical examination were diagnostic for chronic retracted rotator cuff tear of the left shoulder. There is also some osteoarthritis. After failing conservative treatment, she like to proceed with a reverse left shoulder arthroplasty. Specialty Data Orthopedic H & H 10/31/18 11/25/18 Range/Units 13:03 06:30 Hgb 13.1 12.6 (12.0-16.0) g/dL Hct 39.5 37.0 (37-47) % Coagulation 10/31/18 Range/Units 13:03 INR 1.0 (0.9-1.1) Discharge Data Consultations 11/24/18 14:46 Consult Case Management - Discharge Planning Routine Procedures Performed Operation Date: 11/24/18 09:50 Actual Procedures p Left Reverse Total Shoulder Arthroplasty(Left) - Mac Springer DO Hospital Course (1) Rotator cuff arthropathy of left shoulder: On November 24, 2018 Sophie arrived at [facility] and underwent a left reverse shoulder arthroplasty without complication. She had a general anesthetic and a left interscalene nerve block. Postoperatively she was discharged to general orthopedic floors. Her hospital course was uneventful. On postop day #1 her H&H was stable and her pain was well controlled. She was able to participate well with physical therapy doing range of motion exercises. She was subsequently discharged home with [facility]. She will follow-up with orthopedics in 2 weeks. Discharge Instructions Home Medications Medication Instructions Recorded Confirmed acetaminophen 500 mg tablet 500 mg PO Q8H PRN tab 06/15/18 11/24/18 aspirin 81 mg tablet,delayed 81 mg PO QAM 06/15/18 11/24/18 release budesonide-formoterol HFA 160 2 puffs INH BID 06/15/18 11/24/18 mcg-4.5 mcg/actuation aerosol inhaler cetirizine 10 mg tablet 10 mg PO QAM PRN tab 06/15/18 11/24/18 cholecalciferol (vitamin D3) 2,000 2,000 units PO QAM 06/15/18 11/24/18 unit capsule cyanocobalamin (vitamin B-12) 1,000 mcg PO QAM 06/15/18 11/24/18 1,000 mcg capsule esomeprazole magnesium 40 mg 40 mg PO QAM 06/15/18 11/24/18 capsule,delayed release hydrochlorothiazide 50 mg tablet 50 mg PO QAM 06/15/18 11/24/18 ibuprofen 200 mg tablet 200 mg PO QID PRN 06/15/18 11/24/18 loratadine 10 mg tablet 10 mg PO DAILY PRN 06/15/18 11/24/18 meclizine 12.5 mg tablet 12.5 mg PO TID PRN 06/15/18 11/24/18 omega-3 fatty acids 1,000 mg 1,000 mg PO BID cap 06/15/18 11/24/18 capsule potassium chloride ER 20 mEq 20 meq PO BID 06/15/18 11/24/18 tablet,extended release(part/cryst) scopolamine 1 mg over 3 days 1 patch TD Q3D PRN 06/15/18 11/24/18 transdermal patch trazodone 50 mg tablet 50 mg PO HS tab 06/15/18 11/24/18 fluticasone propionate [Flonase 1 spray INTRANASAL DAILY PRN 10/25/18 11/24/18 Allergy Relief] albuterol sulfate [ProAir HFA] 1 puff INHALATION Q6H PRN 10/31/18 10/31/18 rosuvastatin [Crestor] 5 mg PO 3XWK 10/31/18 11/24/18 Previous Rx's Medication Instructions Recorded tramadol 50 - 100 mg PO Q4H PRN #40 tab 11/25/18
[2018-11-25] MEDS: CHECK SCOPOLAMINE PATCH PLACEMENT SCH (08:58)
[2018-11-25] MEDS: POTASSIUM CHLORIDE 20 MEQ TABCR PO SCH (08:58)
[2018-11-25] MEDS: DOCUSATE SODIUM 100 MG CAP PO SCH (08:59)
[2018-11-25] MEDS: BUDESONIDE/FORMOTEROL FUMARATE 160/4.5 60 PUFFS/INHALER INH SCH (08:59)
[2018-11-25] MEDS ORDERED: PANTOprazole 40 MG TAB PO SCH (09:00)
[2018-11-25] MEDS ORDERED: MULTIVITAMIN TAB PO SCH (09:00)
--- NOTE | 2018-11-25 10:10 | Anesthesiology Progress Note ---
Date of Service November 25, 2018 Anesthesia Post Procedure Vital Signs Vital Signs: Temp Pulse Pulse Resp BP Pulse Ox 11/25/18 09:43 97/63 L 11/25/18 09:04 97/63 L 11/25/18 07:22 36.9 C 74 15 92/60 L 94 11/25/18 03:07 36.6 C 80 14 93/59 L 94 11/24/18 23:33 36.5 C 68 14 97/62 L 93 11/24/18 20:00 36.9 C 95 H 18 106/68 91 11/24/18 18:07 94 11/24/18 17:30 36.5 C 73 16 99/64 L 97 11/24/18 16:30 36.5 C 79 18 118/70 93 11/24/18 15:30 36.5 C 78 18 123/77 99 11/24/18 15:07 36.8 C 77 18 109/74 98 11/24/18 14:30 36.4 C L 83 15 111/71 98 11/24/18 14:15 69 12 111/65 97 11/24/18 14:00 73 17 114/67 97 11/24/18 13:45 81 19 128/79 97 11/24/18 13:35 36.3 C L 90 18 124/74 96 11/24/18 13:25 79 15 128/69 95 11/24/18 13:15 79 15 128/69 95 11/24/18 13:05 88 16 122/74 96 11/24/18 12:55 85 14 119/61 97 11/24/18 12:48 36.1 C L 90 12 118/68 96 Pain Intensity Left Shoulder: Pain Intensity: 0 Notes Mental Status: alert / awake / arousable and participated in evaluation Nausea / Vomiting: adequately controlled Pain: adequately controlled Airway Patency, RR, SpO2: stable & adequate BP & HR: stable & adequate Hydration State: stable & adequate
== END 2018-11-25 10:25 | disposition home or self-care (01) | DRG 483 ==
LOC: ASU 07:46 → 3E 12:59

== ENCOUNTER 2021-07-22 07:25 | Inpatient (IN) ==
[2021-07-22] MEDS ORDERED: ONDANSETRON INJ 2 MG/ML 2 ML VIAL IV STA (07:57)
[2021-07-22] MEDS ORDERED: SODIUM CHLORIDE 0.9% 1000ML 1,000 ML IV STA (07:57)
[2021-07-22] MEDS ORDERED: fentaNYL citrate 100 MCG/2 ML VIAL IV STA (07:57)
[2021-07-22] MEDS ORDERED: AMPICILLIN/SULBACTAM SOD 3,000 MG in 0.9 % SODIUM CHLORIDE 100 ML IV STA (07:57)
[2021-07-22] MEDS ORDERED: ACETAMINOPHEN 1,000 MG/100 ML VIAL IV STA (08:02)
[2021-07-22 08:39] LABS: Basophils # (auto) 0.03 K/uL (0-0.2); Basophils % (auto) 0.2 %; Eosinophils # (auto) 0.13 K/uL (0-0.5); Eosinophils % (auto) 0.8 %; Hematocrit (blood only) 36.7 % (37-47); Hemoglobin 12.1 g/dL (12.0-16.0); Immature Granulocytes # (auto) 0.04 K/uL (0.00-0.02); Immature Granulocytes % (auto) 0.3 %; Lymphocytes # (auto) 1.42 K/uL (1.2-3.4); Lymphocytes % (auto) 9.1 %; Mean Corpuscular Hemoglobin 27.6 pg (25-34); Mean Corpuscular Volume 83.8 fL (80-100); Mean Platelet Volume 10.4 fL (7.4-10.4); Monocytes # (auto) 1.47 K/uL (0.11-0.59); Monocytes % (auto) 9.4 %; Neutrophils # (auto) 12.49 K/uL (1.4-6.5); Neutrophils % (auto) 80.2 %; Platelet Count 332 K/uL (130-400); RDW Coefficient of Variation 15.2 % (11.5-14.5); RDW Standard Deviation 46.7 fL (36.4-46.3); Red Blood Count 4.38 M/uL (4.2-5.4); White Blood Count 15.58 K/uL (4.8-10.8)
[2021-07-22 09:01] LABS: Albumin Level 2.9 gm/dl (3.4-5.0); BUN Creatinine Ratio 24.3 (10-20); Calcium 9.3 mg/dl (8.5-10.1); Creatinine Clr Calc Pharmacy 100.4 ml/min; Est GFR (African American) 105.7 ml/min; Est GFR (Non-African American) 91.2 ml/min; Potassium 3.6 mmol/L (3.5-5.1)
[2021-07-22 09:04] LABS: Albumin Globulin Ratio 0.7 (0.9-2); Bilirubin,Total 0.5 mg/dl (0.2-1); Globulin 4.1 gm/dl (2.5-4.0)
[2021-07-22] MEDS ORDERED: OPTIRAY 320 100ml IV ONE (09:28)
--- NOTE | 2021-07-22 09:50 | CT Scan Report ---
ABDOMEN AND PELVIS CT WITH IV CONTRAST CT DOSE: 1016.04 mGycm HISTORY: Left lower quadrant abdominal pain. TECHNIQUE: Multiaxial CT images of the abdomen and pelvis were performed following the use of intrave nous contrast. A dose lowering technique was utilized adhering to the principles of ALARA. COMPARISON STUDY: Abdomen and pelvis CT 07/09/2021. FINDINGS: The lung bases are essentially clear. The liver, spleen, adrenal glands, and pancreas are u nremarkable. Prior cholecystectomy. Subcentimeter hypodense lesion within the right kidney is technic ally too small to characterize but statistically represents a cyst. No hydronephrosis. No retroperito marcio lymphadenopathy. The main portal vein is patent. Mild calcified plaque within the normal caliber abdominal aorta. Mild bladder wall thickening. This may be reactive. The uterus is surgically absent . Trace pelvic free fluid. Moderate thickening of the mid sigmoid colon with pericolonic fat strandin g. This has progressed in the interval. Small multiloculated abscess along the left lateral and under surface of the colon consistent with localized perforation. This measures approximately 6.2 x 3.9 cm. The additional component along the undersurface of the sigmoid colon measures 3.8 cm. This abscess a buts the bladder wall. However, no gas within the bladder lumen to suggest a fistula. Normal appendix . No dilated loops of bowel to suggest an obstruction. IMPRESSION: Interval progression of the acute sigmoid diverticulitis which now demonstrates a multiloculated maryjo colonic abscess as described above. This abuts the bladder wall. However, no evidence for a colovesic al fistula at this time. ACT 112: Negative or not required by law. Electronically signed by: Lan Carcamo M.D. 07/22/2021 9:48 AM
[2021-07-22 09:57] LABS: Appearance Urine Clear (Clear); Bilirubin Urine Negative (Negative); Blood Urine Negative (Negative); Color Urine Yellow; Glucose Urine UA Negative (Negative); Ketones Urine Negative (Negative); Leukocyte Esterase Urine Negative (Negative); Nitrite Urine Negative (Negative); Protein Urine Negative (Negative); Specific Gravity Urine > 1.045 (1.000-1.030); Urobilinogen Urine Negative (Negative)
[2021-07-22] MEDS: CIPROFLOXACIN / D5W 400 MG/200 ML BAG IV SCH ×2 (12:02→20:35)
--- NOTE | 2021-07-22 14:07 | History & Physical Report ---
Date of Service July 22, 2021 Assessment & Plan (1) Diverticulitis: Plan: Patient with known acute diverticulitis present with worsening pain Failed outpatient management. Now has an abscess. Patient will require transfer to outside facility: Dr. Galeas Patient will continue on antibiotics (2) Abdominal pain: Plan: secondary to above. (3) Thoracic back pain: Plan: has been following outpatient Physical therapy. No new complaints. (4) Asthma: Plan: resume home meds (5) Hypertension: Plan: resume home meds (6) Palpitations: (7) Peripheral edema: (8) Obesity: Plan: recommend life style changes. (9) GERD (gastroesophageal reflux disease): Plan: Patient is on PPI. will continue IV for now. History of Present Illness Chief Complaint: abdominal pain Primary Care Provider: Leandro Vallejo MD 71 yo female comes in with worsening abdominal pain. Patient had worsening pain which did not resolve on Mondya. She initially felt like it was the food. And she waited 2 more days, however her pain continued to worsened. She tried outpatient antibiotics and these did not help. As her pain worsened, and her appetite decreased, patient decided to come into the hospital. Allergies Allergy/AdvReac Type Severity Reaction Status Date / Time aluminum Allergy Unknown FATIGUE,HEADACHE, Verified 07/22/21 08:33 CHILLS AND ACHINESS celecoxib Allergy Unknown "SEVERE Verified 07/22/21 08:33 GENERAL BODY EDEMA" diphtheria toxoid,fluid Allergy Unknown "NEVER HAD Verified 07/22/21 08:33 A PROBLEM WITH THAT ONE" latex Allergy Unknown Difficulty Verified 07/22/21 08:33 Breathing pneumococcal vaccine Allergy Unknown FATIGUE,HEADACHE,CHILLS Verified 07/22/21 08:33 , ACHINESS pollen extracts Allergy Unknown HAY FEVER Verified 07/22/21 08:33 sorbitan esters Allergy Unknown FATIGUE, Verified 07/22/21 08:33 HEADACHE, CHILLS, ACHINESS capsaicin AdvReac Unknown GI Verified 07/22/21 08:33 upset/diarrhea diclofenac AdvReac Unknown GI Verified 07/22/21 08:33 upset/diarrhea fentanyl AdvReac Unknown severe Verified 07/22/21 08:33 nausea and dizziness Past Med/Surg History Medical History Asthma rarely uses PRN inh Chronic right-sided low back pain with right-sided sciatica Chronic sinusitis GERD (gastroesophageal reflux disease) History of anesthesia reaction 1) TAKES A LONG TIME TO WAKE UP, REQUESTS TO BE AN EARLY SURGERY DUE TO THIS ISSUE 2) FOR DAYS AFTER ANESTHESIA HAS RESTLESS LEGS History of duodenal ulcer History of esophagitis History of gastritis HLD (hyperlipidemia) HX Lumbar disc herniation L5-S1 Lumbar facet joint syndrome Lumbar spinal stenosis moderate L4-5 Meniere disease REASON FOR HCTZ Mitral valve prolapse does not follow w/ cardio Obesity Osteoarthritis Reactive airway disease Restless legs syndrome Stress incontinence in female Trochanteric bursitis of left hip BURSITITS BOTH HIP, NO CURRENT PROBLEM WITH UTI (urinary tract infection) HX FEW WEEKS AGO, RESOLVED HAD F/U SAMPLE AND CLEAN Vitamin B12 deficiency HX Surgical History H/O sinus surgery multiple History of arthroscopy of left knee History of D&C History of esophagogastroduodenoscopy (EGD) History of eye surgery MUSCLE REPAIR OF LEFT EYE CHILD History of total left knee replacement History of total right knee replacement Hx of cholecystectomy Hx of hysterectomy Hx of repair of right rotator cuff Hx of tonsillectomy Nausea and vomiting after administration of anesthetic agent S/P carpal tunnel release HX S/P foot surgery, left multiple excision of neuroma Status post total shoulder arthroplasty HX Left TSA Family History Mother Lung cancer Cancer of bone Father Prostate cancer FH: deafness or hearing loss Sinusitis Hypertension Cancer of bone Sister FH: deafness or hearing loss Sinusitis Grandmother FH: deafness or hearing loss Family/Other Sinusitis Brother Sinusitis Grandmother Stroke Grandfather Stroke Grandmother No problems noted. Grandmother (Paternal) Stroke Grandfather (Paternal) No problems noted. Grandfather (Maternal) Stroke Myocardial infarction Denies family history of Ovarian cancer Cardiac disorder Breast cancer Colorectal cancer Asthma Social History Smoking Status: Never smoker Second Hand Exposure: Yes (both parents smoked); Hx Alcohol Use: No Hx Substance Use: No Preferred Language: [place] Communication Ability: Effective Visual Impairment: Limited Hearing Ability: Normal Pastoral Worker Required: No Beliefs That Will Affect Care: None marital status: Current Living Situation: Spouse current occupational status: retired How many Children do You have: 2 Other Information That Helps Us Care for You: No Feels Safe at Home: Yes Safety Concerns: Feels Safe At This Time Childhood Exposure to Second-Hand Smoke: Yes caffeine: No Dental Care, Regularly: Yes Physical Activity Frequency: Daily Seatbelt Use: always Sunscreen Use: Yes Assistive Devices: None Review of Systems Constitutional: + chills, + fatigue and + malaise; no fever and no sweats Eyes: no blind spots and no discharge Ear, Nose, Mouth, Throat: no ear pain and no tinnitus Respiratory: no cough Cardiovascular: no chest pain and no radiating jaw, neck or arm pain Gastrointestinal: no abdominal pain Genitourinary: no dysuria Musculoskeletal: no back pain Integumentary: no acne Neurologic: no gait abnormality Psychiatric: no behavioral changes Endocrine: no fatigue Hematologic / Lymphatic: no easy bleeding Allergy / Immunological: no GI upset with certain foods Physical Exam Constitutional: WD/WN, vitals as above Eyes: PERRL, conjunctivae normal, anicteric sclerae ENMT: external ear and nose normal, oropharynx normal Neck: trachea midline, no thyromegaly Respiratory: normal respiratory effort, lungs clear to auscultation Cardiovascular: RRR, no murmur, no edema Gastrointestinal (Abdomen): Inspection/Auscultation: abdomen normal to inspection and normal bowel sounds Percussion/Palpation: + abdomen tender (to deep palpation to left lower quadrant; no rebound tenderness) and abdomen soft Skin: no rashes, warm and dry Neurologic: PERRL, EOMI, accommodation nl, no face palsy, no dysarthria Psychiatric: A+Ox3, euthymic affect Results & Data Results & Data ([facility]) Vital Signs (Past 12 Hours) Vital Signs Temp Pulse Pulse Resp BP BP Pulse Ox 07/22/21 13:00 75 18 98 07/22/21 11:00 68 18 116/78 07/22/21 09:32 65 20 123/81 97 07/22/21 08:23 88 20 98 07/22/21 07:39 37 C 88 20 130/56 L 98 07/22/21 07:29 36.7 C 82 16 122/70 96 PG Care Time/CCT Total # of Minutes Spent Total Time Spent with Patient: Total time spent is greater than 50% in coordination of care (as documented) at patient's floor/unit and/or counseling patient: Coding Level of Care Code 54580 Initial Inpt Care Lvl 3 Diagnoses Abdominal pain R10.9 Abdominal location: unspecified location Diverticulitis K57.92 Thoracic back pain M54.6 Asthma J45.909 Hypertension I10 Hypertension type: essential hypertension Palpitations R00.2 Peripheral edema R60.9 Obesity E66.01; Z68.41 Body mass index: BMI 40.0-44.9 Obesity classification: adult class 3 (BMI >= 40) Obesity type: due to excess calories Serious obesity comorbidity presence: unspecified whether serious comorbidity present GERD (gastroesophageal reflux disease) K21.9 (1) Abdominal pain Abdominal location: unspecified location Qualified Code(s): R10.9 - Unspecified abdominal pain (2) Hypertension Hypertension type: essential hypertension Qualified Code(s): I10 - Essential (primary) hypertension (3) Obesity Body mass index: BMI 40.0-44.9 Obesity classification: adult class 3 (BMI >= 40) Obesity type: due to excess calories Serious obesity comorbidity presence: unspecified whether serious comorbidity present Qualified Code(s): E66.01 - Morbid (severe) obesity due to excess calories; Z68.41 - Body mass index [BMI]40.0-44.9, adult
[2021-07-22] MEDS: metroNIDAZOLE 500 MG/100 ML BAG IV SCH ×2 (15:06→20:35)
[2021-07-22] MEDS ORDERED: CHECK SCOPOLAMINE PATCH PLACEMENT SCH (16:00)
[2021-07-22] MEDS ORDERED: BUDESONIDE/FORMOTEROL FUMARATE 160/4.5 60 PUFFS/INHALER INH SCH (16:15)
[2021-07-22] MEDS ORDERED: FLUTICASONE/VILANTEROL 200/25MCG 14 PUFFS/INHALER INH SCH (16:30)
[2021-07-22] MEDS ORDERED: ACETAMINOPHEN 1000 MG/100 ML IV IV PRN (17:17)
--- NOTE | 2021-07-22 19:14 | Emergency Department Note ---
Impression & Plan Abscess of sigmoid colon due to diverticulitis, Failure of outpatient treatment, Abdominal pain, LLQ (left lower quadrant) ED Provider Note CHIEF COMPLAINT: Left lower abd pain. HISTORY OF PRESENT ILLNESS: This 71 yo female patient presents to the emergency department with c/o LLQ abd pain. Pt states it has been progressively worsening over the last few days. Pt was evaluated in the ED on 07/09 and dx with acute diverticulitis. She was tx with cipro and flagyl, but did not tolerate the flagyl well. Pt was seen by her PCP and the flagyl was d/c. Pt has some improvement but has since developed more severe pain, especially when she has a full bladder. She has had chills but no fever. She denies blood in the stools and has had no vomiting. REVIEW OF SYSTEMS: A review of systems was performed with positives and pertinent negatives listed in the history of present illness. 10 systems were reviewed and are otherwise negative. ALLERGIES: see below MEDICATIONS: see below PMH: see below SOCIAL HISTORY: see below DDx: Appendicitis, diverticulitis, abscess, UTI, obstruction, mesenteric ischemia, aortic pathology, inflammatory bowel disease, renal colic, PUD, panc reatitis, biliary pathology, hernia, volvulus, constipation, as well as other pathologies. PHYSICAL EXAM: Vital signs reviewed. General: Well-appearing 71 yo female, in no significant distress. HEENT: No scleral icterus, PERRLA, neck supple. MMM Cardiovascular: Regular rate and rhythm, no extra sounds. Pulmonary: Clear to auscultation bilaterally, normal work of breathing. Abdomen: Soft, obese, tender to palp of LLQ, no rebound, no guarding, nondistended, positive bowel sounds. Musculoskeletal: Atraumatic, no peripheral edema. Neurologic: Patient awake alert and oriented x 3 Skin: Warm, dry, no rash EMERGENCY DEPARTMENT COURSE/MDM: This pt was evaluated and appeared to be in no distress. IV access was obtained and lab work was drawn. Pt was hydrated with NSS, given IV acetaminophen, IV fentanyl 50 mcg and IV zofran 4 mg. Chart was reviewed. CT abd and pelvis was repeated and reveals a 6 cm pericolonic/diverticular abscess. Labs reveals a leukocytosis. IV unasyn was administered. Pt's case was reviewed with Dr. Palmer of surgery at [facility] who has accepted the patient in transfer for interventional radiology evaluation. Dr. Palmer has requested IV cipro and flagyl, which was ordered. Pt was informed of the findings and plan, and agreed. [facility] will not have bed availability for ~24 hours or more. Pt was d/w Dr. Cota of the hospitalist service for further management. MONITORING: An order for cardiac monitoring was placed and the patient is noted to be in a normal sinus rhythm at 88 beats per minute. RADIOLOGY: see below DISPOSITION: admit awaiting transfer to [facility] I have personally spent 30 minutes of critical care time in the direct management of this patient. This was a life/limb threatening event. This 30 minutes is in excess of all separately billable procedures. Past Med/Surg History Medical History Asthma rarely uses PRN inh Chronic right-sided low back pain with right-sided sciatica Chronic sinusitis GERD (gastroesophageal reflux disease) History of anesthesia reaction 1) TAKES A LONG TIME TO WAKE UP, REQUESTS TO BE AN EARLY SURGERY DUE TO THIS ISSUE 2) FOR DAYS AFTER ANESTHESIA HAS RESTLESS LEGS History of duodenal ulcer History of esophagitis History of gastritis HLD (hyperlipidemia) HX Lumbar disc herniation L5-S1 Lumbar facet joint syndrome Lumbar spinal stenosis moderate L4-5 Meniere disease REASON FOR HCTZ Mitral valve prolapse does not follow w/ cardio Obesity Osteoarthritis Reactive airway disease Restless legs syndrome Stress incontinence in female Trochanteric bursitis of left hip BURSITITS BOTH HIP, NO CURRENT PROBLEM WITH UTI (urinary tract infection) HX FEW WEEKS AGO, RESOLVED HAD F/U SAMPLE AND CLEAN Vitamin B12 deficiency HX Surgical History H/O sinus surgery multiple History of arthroscopy of left knee History of D&C History of esophagogastroduodenoscopy (EGD) History of eye surgery MUSCLE REPAIR OF LEFT EYE CHILD History of total left knee replacement History of total right knee replacement Hx of cholecystectomy Hx of hysterectomy Hx of repair of right rotator cuff Hx of tonsillectomy Nausea and vomiting after administration of anesthetic agent S/P carpal tunnel release HX S/P foot surgery, left multiple excision of neuroma Status post total shoulder arthroplasty HX Left TSA Family History Mother Lung cancer Cancer of bone Father Prostate cancer FH: deafness or hearing loss Sinusitis Hypertension Cancer of bone Sister FH: deafness or hearing loss Sinusitis Grandmother FH: deafness or hearing loss Family/Other Sinusitis Brother Sinusitis Grandmother Stroke Grandfather Stroke Grandmother No problems noted. Grandmother (Paternal) Stroke Grandfather (Paternal) No problems noted. Grandfather (Maternal) Stroke Myocardial infarction Denies family history of Ovarian cancer Cardiac disorder Breast cancer Colorectal cancer Asthma Social History Smoking Status: Never smoker Second Hand Exposure: No ( A CHILD); Hx Alcohol Use: No Hx Substance Use: No Preferred Language: [place] Communication Ability: Effective Visual Impairment: Limited Hearing Ability: Normal Carpet Installer Required: No Beliefs That Will Affect Care: Zoroastrian Zoroastrian Beliefs: JEWISH marital status: Current Living Situation: Spouse current occupational status: retired How many Children do You have: 2 Feels Safe at Home: Yes Childhood Exposure to Second-Hand Smoke: Yes caffeine: No Dental Care, Regularly: Yes Physical Activity Frequency: Daily Seatbelt Use: always Sunscreen Use: Yes Assistive Devices: Glasses Allergies Allergies Allergy/AdvReac Type Severity Reaction Status Date / Time aluminum Allergy Unknown FATIGUE,HEADACHE, Verified 07/22/21 08:33 CHILLS AND ACHINESS celecoxib Allergy Unknown "SEVERE Verified 07/22/21 08:33 GENERAL BODY EDEMA" diphtheria toxoid,fluid Allergy Unknown "NEVER HAD Verified 07/22/21 08:33 A PROBLEM WITH THAT ONE" latex Allergy Unknown Difficulty Verified 07/22/21 08:33 Breathing pneumococcal vaccine Allergy Unknown FATIGUE,HEADACHE,CHILLS Verified 07/22/21 08:33 , ACHINESS pollen extracts Allergy Unknown HAY FEVER Verified 07/22/21 08:33 sorbitan esters Allergy Unknown FATIGUE, Verified 07/22/21 08:33 HEADACHE, CHILLS, ACHINESS capsaicin AdvReac Unknown GI Verified 07/22/21 08:33 upset/diarrhea diclofenac AdvReac Unknown GI Verified 07/22/21 08:33 upset/diarrhea fentanyl AdvReac Unknown severe Verified 07/22/21 08:33 nausea and dizziness Home Meds Home Medications Medication Instructions Recorded Confirmed aspirin 81 mg tablet,delayed 81 mg PO QAM 06/15/18 07/22/21 release (Adult Aspirin Regimen) cholecalciferol (vitamin D3) 50 2,000 units PO QAM 06/15/18 07/22/21 mcg (2,000 unit) capsule cyanocobalamin (vitamin B-12) 1,000 mcg PO QAM 06/15/18 07/22/21 1,000 mcg capsule ibuprofen 200 mg tablet (Advil) 200 mg PO QID PRN 06/15/18 07/22/21 acetaminophen 325 mg tablet 325 mg PO Q6H PRN tab 02/15/19 07/22/21 hydrocodone-homatropine 5 mg-1.5 5 ml PO HS PRN #120 ml 02/15/19 07/22/21 mg/5 mL oral syrup fexofenadine 180 mg tablet 180 mg PO DAILY PRN 02/22/20 07/22/21 (Velvet Allergy) azelaic acid 15 % topical gel 1 applic TOPICAL UD PRN 08/26/20 07/22/21 (Finacea) budesonide-formoterol HFA 160 2 puff INH UD PRN 03/04/21 07/22/21 mcg-4.5 mcg/actuation aerosol inhaler (Symbicort) scopolamine base 1 mg over 3 days 1 patch TD UD PRN 03/04/21 07/22/21 transdermal patch (Transderm-Scop 1.5 mg transdermal patch () fluticasone propionate 50 2 spray INTRANASAL DAILY 07/09/21 07/22/21 mcg/actuation nasal spray,suspension (Flonase Allergy Relief) hydrochlorothiazide 50 mg tablet 50 mg PO QAM 07/09/21 07/22/21 Previous Rx's Medication Instructions Recorded potassium chloride 10 mEq 20 meq PO BID #360 tab 05/08/19 tablet,extended release azelastine 137 mcg (0.1 %) nasal 2 spray INTRANASAL BID PRN #30 ml 08/05/20 spray aerosol esomeprazole magnesium 40 mg 40 mg PO QAM #90 cap 08/26/20 capsule,delayed release (Nexium) trazodone 50 mg tablet 50 mg PO HS #90 tab 08/26/20 albuterol sulfate 90 mcg/actuation 2 inh INHALATION Q4H PRN #18 g 02/25/21 aerosol inhaler (ProAir HFA) Results & Data (ED) Vital Signs Vital Signs - 24 hr 07/22/21 07:29 07/22/21 07:39 07/22/21 08:23 Temperature 36.7 C 37 C Temperature Source Temporal Artery Scan Oral Pulse Rate 82 88 Pulse Rate [Finger] 88 Pulse Rhythm Regular Pulse Rhythm [Finger] Regular Pulse Strength [Finger] Normal Respiratory Rate 16 20 20 Respiratory Effort / Characteristics Non-Labored Respiratory Depth Normal Normal Respiratory Pattern Blood Pressure 122/70 Blood Pressure [Right Arm] 130/56 L Blood Pressure Mean 87 Blood Pressure Mean [Right Arm] 80 Blood Pressure Position [Right Arm] Sitting Pulse Oximetry 96 98 98 Oxygen Delivery Method Room Air Room Air Sepsis Recent Fever Within 48 Hours No Sepsis New/Unexplained Change in Mental Status No Sepsis Action Taken by Nursing No Action Required 07/22/21 09:32 07/22/21 11:00 07/22/21 13:00 Temperature Temperature Source Pulse Rate Pulse Rate [Finger] 65 68 75 Pulse Rhythm Pulse Rhythm [Finger] Regular Regular Regular Pulse Strength [Finger] Normal Normal Normal Respiratory Rate 20 18 18 Respiratory Effort / Characteristics Non-Labored Non-Labored Non-Labored Respiratory Depth Normal Normal Normal Respiratory Pattern Regular Regular Blood Pressure Blood Pressure [Right Arm] 123/81 116/78 Blood Pressure Mean Blood Pressure Mean [Right Arm] 95 90 Blood Pressure Position [Right Arm] Sitting Sitting Sitting Pulse Oximetry 97 98 Oxygen Delivery Method Room Air Room Air Room Air Sepsis Recent Fever Within 48 Hours Sepsis New/Unexplained Change in Mental Status Sepsis Action Taken by [facility] Medications Current Medication List: was personally reviewed by me Laboratory Data Attestation: I reviewed the patient's lab results. Result diagrams: 07/22/21 Unknown 07/22/21 Unknown Lab Results 07/22/21 07/22/21 Range/Units 09:30 11:15 Urine Color Yellow Urine Appearance Clear (Clear) Urine pH 8.0 H (4.5-7.5) Ur Specific [place] > 1.045 H (1.000-1.030) Urine Protein Negative (Negative) Urine Glucose (UA) Negative (Negative) Urine Ketones Negative (Negative) Urine Blood Negative (Negative) Urine Nitrite Negative (Negative) Urine Bilirubin Negative (Negative) Urine Urobilinogen Negative (Negative) Ur Leukocyte Esterase Negative (Negative) SARS-CoV-2, RNA, NAAT NEGATIVE (NEGATIVE) Administered Medications Acetaminophen (Acetaminophen 1000 Mg/100 Ml Iv) 1,000 mg IV Q8H PRN PRN Reason: Pain Stop: 07/25/21 17:16 Last Admin: 07/22/21 17:33 Dose: 1,000 mg Documented by: [id number] Fluticasone/Vilanterol (Fluticasone/Vilanterol 200/25mcg 14 Puffs/Inhaler) 1 puffs INH DAILY CHARLA Stop: 08/21/21 16:29 Last Admin: 07/22/21 17:32 Dose: Not Given Documented by: [id number] Ciprofloxacin (Cipro / D5w) 400 mg in 200 mls @ 100 mls/hr IV Q12 CHARLA; Protocol Stop: 08/01/21 11:14 Last Infusion: 07/22/21 14:02 Dose: 100 mls/hr Documented by: [id number] Admin: 07/22/21 12:02 Dose: 100 mls/hr Documented by: [id number] Metronidazole (Flagyl) 500 mg in 100 mls @ 100 mls/hr IV Q8H CHARLA; Protocol Stop: 08/01/21 11:14 Last Infusion: 07/22/21 16:08 Dose: 100 mls/hr Documented by: [id number] Admin: 07/22/21 15:06 Dose: 100 mls/hr Documented by: [id number] Discontinued Medications Fentanyl Citrate (Fentanyl Citrate 100 Mcg/2 Ml Vial) 50 mcg IV NOW STA Stop: 07/22/21 07:58 Last Admin: 07/22/21 08:18 Dose: Not Given Documented by: [id number] Sodium Chloride (Nss 1000ml) 1,000 mls @ 125 mls/hr IV .Q8H STA Stop: 07/22/21 15:56 Last Infusion: 07/22/21 16:27 Dose: 125 mls/hr Documented by: [id number] Admin: 07/22/21 08:25 Dose: 125 mls/hr Documented by: [id number] Ampicillin Sodium/Sulbactam Sodium 3,000 mg/ Sodium Chloride 108 mls @ 200 mls/hr IV NOW STA; Protocol Stop: 07/22/21 08:29 Last Infusion: 07/22/21 09:23 Dose: 200 mls/hr Documented by: [id number] Admin: 07/22/21 08:50 Dose: 200 mls/hr Documented by: [id number] Acetaminophen (Ofirmev) 1,000 mg in 100 mls @ 400 mls/hr IV NOW STA Stop: 07/22/21 08:16 Last Infusion: 07/22/21 08:51 Dose: 400 mls/hr Documented by: [id number] Admin: 07/22/21 08:27 Dose: 400 mls/hr Documented by: [id number] Ioversol (Optiray 320 100ml) 90 ml IV ONCE ONE Stop: 07/22/21 09:29 Last Admin: 07/22/21 09:29 Dose: 90 ml Documented by: [id number] Ondansetron HCl (Ondansetron Inj 2 Mg/Ml 2 Ml Vial) 4 mg IV NOW STA Stop: 07/22/21 07:58 Last Admin: 07/22/21 08:24 Dose: Not Given Documented by: [id number] Imaging Data Radiologist's Impression: Abdomen/Pelvis CT 07/22/21 07:[address] WITH IV CONTRAST CT DOSE: 1016.04 mGycm HISTORY: Left lower quadrant abdominal pain. TECHNIQUE: Multiaxial CT images of the abdomen and pelvis were performed following the use of intravenous contrast. A dose lowering technique was utilized adhering to the principles of ALARA. COMPARISON STUDY: Abdomen and pelvis CT 07/09/2021. FINDINGS: The lung bases are essentially clear. The liver, spleen, adrenal glands, and pancreas are unremarkable. Prior cholecystectomy. Subcentimeter hypodense lesion within the right kidney is technically too small to bertin cterize but statistically represents a cyst. No hydronephrosis. No retroperitoneal lymphadenopathy. The main portal vein is patent. Mild calcified plaque within the normal caliber abdominal aorta. Mild bladder wall thickening. This may be reactive. The uterus is surgically absent. Trace pelvic free fluid. Moderate thickening of the mid sigmoid colon with pericolonic fat stranding. This has progressed in the interval. Small multiloculated abscess along the left lateral and undersurface of the colon consistent with localized perforation. This measures approximately 6.2 x 3.9 cm. The additional component along the undersurface of the sigmoid colon measures 3.8 cm. This abscess abuts the bladder wall. However, no gas within the bladder lumen to suggest a fistula. Normal appendix. No dilated loops of bowel to suggest an obstruction. IMPRESSION: Interval progression of the acute sigmoid diverticulitis which now demonstrates a multiloculated pericolonic abscess as described above. This abuts the bladder wall. However, no evidence for a colovesical fistula at this time. ACT 112: Negative or not required by law. Electronically signed by: Lan Carcamo M.D. 07/22/2021 9:48 AM Blood Pressure Blood Pressure Findings: Normal blood pressure Blood Pressure Disposition: did not require urgent referral Discharge Plan Visit Data Chief Complaint: GI Assessment Stated Complaint: DIVERTICULITIS FLARE UP ED Provider: Nicole Natarajan Discharge Problem: Abscess of sigmoid colon due to diverticulitis, Failure of outpatient treatment, Abdominal pain, LLQ (left lower quadrant)
--- NOTE | 2021-07-22 21:42 | Discharge Summary ---
Date of Service July 22, 2021 Admission HPI Per Admitting Provider 71 yo female comes in with worsening abdominal pain. Patient had worsening pain which did not resolve on Mondya. She initially felt like it was the food. Admission Exam Per Admitting Provider Constitutional: WD/WN, vitals as above Eyes: PERRL, conjunctivae normal, anicteric sclerae ENMT: external ear and nose normal, oropharynx normal Neck: trachea midline, no thyromegaly Respiratory: normal respiratory effort, lungs clear to auscultation Cardiovascular: RRR, no murmur, no edema Gastrointestinal (Abdomen): Inspection/Auscultation: abdomen normal to inspection and normal bowel sounds Percussion/Palpation: + abdomen tender (to deep palpation to left lower quadrant; no rebound tenderness) and abdomen soft B Skin: no rashes, warm and dry Neurologic: PERRL, EOMI, accommodation nl, no face palsy, no dysarthria Psychiatric: A+Ox3, euthymic affect Principal Diagnosis diverticulitis Discharge Exam Constitutional well developed and well nourished; no acute distress Eyes PERRL, conjunctivae normal, anicteric sclerae ENMT external ear and nose normal, oropharynx normal Neck normal visual inspection Respiratory normal respiratory effort, lungs clear to auscultation Cardiovascular RRR, no murmur, no edema Gastrointestinal (Abdomen) - abdomen soft - no guarding - tender to palpation over the left lower quadrant Skin no rashes, warm and dry Discharge Data Allergies Allergy/AdvReac Type Severity Reaction Status Date / Time aluminum Allergy Unknown FATIGUE,HEADACHE, Verified 07/22/21 08:33 CHILLS AND ACHINESS celecoxib Allergy Unknown "SEVERE Verified 07/22/21 08:33 GENERAL BODY EDEMA" diphtheria toxoid,fluid Allergy Unknown "NEVER HAD Verified 07/22/21 08:33 A PROBLEM WITH THAT ONE" latex Allergy Unknown Difficulty Verified 07/22/21 08:33 Breathing pneumococcal vaccine Allergy Unknown FATIGUE,HEADACHE,CHILLS Verified 07/22/21 08:33 , ACHINESS pollen extracts Allergy Unknown HAY FEVER Verified 07/22/21 08:33 sorbitan esters Allergy Unknown FATIGUE, Verified 07/22/21 08:33 HEADACHE, CHILLS, ACHINESS capsaicin AdvReac Unknown GI Verified 07/22/21 08:33 upset/diarrhea diclofenac AdvReac Unknown GI Verified 07/22/21 08:33 upset/diarrhea fentanyl AdvReac Unknown severe Verified 07/22/21 08:33 nausea and dizziness Consultations 07/22/21 14:29 ED Decision to Admit Stat Ordered Studies 07/22/21 07:57 CT abd pelvis IV con only Stat Hospital Course (1) Abscess of sigmoid colon due to diverticulitis: 71 yo F w/ GERD, Asthma, [place]ie[place], HTN presents with worsening abdominal pain and found to have failed outpatient management and found to have abscess on CT Diverticulitis Patient with known acute diverticulitis present with worsening pain Failed outpatient management. CT a/p with progression of acute sigmoid diverticulitis and multiloculated pericolonic abscess abutting the blader wall - one dose of Unasyn in the ER - started on Cipro Metronidazole Nausea while traveling - scopolamine patch applied prior to transit (10PM 07/22) Total Time Total Time Spent Total Time Spent (In Minutes): see attending attestation Discharge Plan Discharge Items Patient Disposition: Transfer Acute Care Hospital Reason For Visit: DIVERTICULITIS Discharge Diagnosis: diverticulitis Activity: Per Instructions section Non-emergency contact: Primary Care Provider and Lunch Truck Driver Call non-emergency contact if: your symptoms worsen Follow-up/Referrals: Leandro Vallejo MD [Primary Care Provider] - Diet: Nothing by Mouth Addtl Attending Provider Instructions: transfer for diverticulitis with abscess Pending Studies at Discharge: No Stand-Alone Forms: My [facility] Skilled Items Patient informed of condition?: Yes DNR: No Discharge Level of Care: Other Communicable Disease: No Discharge Prognosis: Stable Lines: Peripheral IV Urinary Catheter: No Medications and DC Order Prescriptions: Discontinued aspirin [Adult Aspirin Regimen] 81 mg tablet,delayed release (DR/EC) 81 mg PO QAM RF: 0 ibuprofen [Advil] 200 mg tablet 200 mg PO QID PRN (Reason: Pain) RF: 0 cholecalciferol (vitamin D3) 2,000 unit capsule 2,000 units PO QAM RF: 0 cyanocobalamin (vitamin B-12) 1,000 mcg capsule 1,000 mcg PO QAM RF: 0 potassium chloride 10 mEq tablet extended release 20 meq PO BID Qty: 360 RF: 3 trazodone 50 mg tablet 50 mg PO HS Qty: 90 RF: 3 azelastine 137 mcg (0.1 %) aerosol,spray 2 spray intranasal BID PRN (Reason: ud) Qty: 30 RF: 3 albuterol sulfate [ProAir HFA] 90 mcg/actuation HFA aerosol inhaler 2 inh INHALATION Q4H PRN (Reason: Wheezing) Qty: 18 RF: 11 fexofenadine [Velvet Allergy] 180 mg tablet 180 mg PO DAILY PRN (Reason: ALLERGIES) RF: 0 azelaic acid [Finacea] 15 % gel 1 applic topical UD PRN (Reason: ECZEMA) RF: 0 esomeprazole magnesium [Nexium] 40 mg capsule,delayed release(DR/EC) 40 mg PO QAM Qty: 90 RF: 3 hydrocodone-homatropine 5-1.5 mg/5 mL syrup 5 ml PO HS PRN (Reason: cough) Qty: 120 RF: 0 acetaminophen 325 mg tablet 325 mg PO Q6H PRN (Reason: Pain) RF: 0 scopolamine base [Transderm-Scop] 1 mg over 3 days patch 3 day 1 patch TD UD PRN (Reason: motion sickness) RF: 0 budesonide-formoterol [Symbicort] 160-4.5 mcg/actuation HFA aerosol inhaler 2 puff INH UD PRN (Reason: ASTHMA) RF: 0 hydrochlorothiazide 50 mg tablet 50 mg PO QAM RF: 0 fluticasone propionate [Flonase Allergy Relief] 50 mcg/actuation spray,suspension 2 spray INTRANASAL DAILY RF: 0 Discharge Orders: Discharge Order (Routine); Ordered 07/22/21 Ordered By: Wellington Hammond Admission Data Admit Date/Time: 07/22/21 13:52 Attending Provider: Krishan Coat Admit Provider: Krishan Cota Primary Care Provider: Leandro Vallejo Other Providers: Krishan Cota
[2021-07-22] MEDS ORDERED: SCOPOLAMINE 1 MG TDSY TD ONE (21:45)
== END 2021-07-22 22:25 | disposition short-term general hospital (02) | DRG 392 ==
LOC: ED 07:25 → EDINP 13:52 → 3N 19:38
DX: Z68.41 Body mass index [BMI] 40.0-44.9, adult; Z79.82 Long term (current) use of aspirin; Z91.040 Latex allergy status; K21.9 Gastro-esophageal reflux disease without esophagitis; E66.01 Morbid (severe) obesity due to excess calories; Z88.7 Allergy status to serum and vaccine; Z88.8 Allergy status to other drugs, medicaments and biological substances; J45.909 Unspecified asthma, uncomplicated; I10 Essential (primary) hypertension; K57.20 Diverticulitis of large intestine with perforation and abscess without bleeding